=== PATIENT | female | born 1985 | race Caucasian/White ===

== ENCOUNTER 2022-06-03 07:38 | Outpatient (REF) | payer OTHER, SELFPAY ==
[2022-06-03 07:48] LABS: MANUAL DIFF FLAG NO
--- NOTE | 2022-06-03 07:55 | ECG_ITS ---
Test Reason : cp Blood Pressure : / mmHG Vent. Rate : 076 BPM Atrial Rate : 076 BPM P-R Int : 148 ms QRS Dur : 080 ms QT Int : 376 ms P-R-T Axes : 051 020 020 degrees QTc Int : 423 ms Normal sinus rhythm Normal ECG No previous ECGs available Referred By: Fiordaliza Soto Electronically Signed By:TAMMY YT
[2022-06-03 08:19] LABS: Basophils Absolute Auto 0.1 X10*3/uL (0.0-0.2); Basophils Percent Auto 1.1 % (0-2); Eosinophils Absolute Auto 0.2 X10*3/uL (0.0-0.4); Eosinophils Percent Auto 2.1 % (0-4); Hematocrit 39.3 % (37.0-47.0); Hemoglobin 13.2 g/dl (12.0-16.0); Imm Gran Abs Auto 0.03 X10*3/uL (0.00-0.03); Imm Gran Pct Auto 0.3 % (0.0-0.4); Lymphocytes Absolute Auto 2.8 X10*3/uL (1.2-4.9); Lymphocytes Percent Auto 31.1 % (20-40); Mean Corpuscular HGB Conc 33.6 g/dl (31.0-35.0); Mean Corpuscular Hemoglobin 30.2 pg (27.0-33.0); Mean Corpuscular Volume 89.9 fL (80.0-98.0); Mean Platelet Volume 11.3 fL (9.4-12.3); Monocytes Absolute Auto 0.7 X10*3/uL (0.1-1.2); Monocytes Percent Auto 7.7 % (2-11); Neutrophils Absolute Auto 5.1 x10*3/uL (2.0-8.3); Neutrophils Percent Auto 57.7 % (45-73); Platelet Count 273 X10*3/uL (160-400); Red Blood Count 4.37 X10*6/uL (4.20-5.50); Red Cell Distribution Width 12.9 % (11.0-16.0); White Blood Count 8.9 X10*3/uL (4.8-10.8)
[2022-06-03 08:48] LABS: Alanine Aminotransferase 24 U/L (0-31); Albumin Level 3.8 g/dL (3.5-5.0); Alkaline Phosphatase 53 U/L (39-117); Anion Gap 13 (12-20); Aspartate Amino Transferase 16 U/L (5-31); Bilirubin Total 0.3 mg/dL (0.0-1.0); Blood Urea Nitrogen 16 mg/dL (9-16); Calcium 8.5 mg/dL (8.4-10.2); Carbon Dioxide 23 mmol/L (22-29); Chloride 109 mmol/L (96-108); Cholesterol 180 mg/dL; Estimated Glomerular Filt Rate > 60; Glucose Fasting 109 mg/dL (60-99); HDL Cholesterol 42 mg/dL; LDL Cholesterol Calculated 126 mg/dl; Potassium 4.3 mmol/L (3.3-5.1); Sodium 141 mmol/L (135-145); Total Protein 6.2 g/dL (6.5-8.0); Triglycerides 62 mg/dL
[2022-06-03 09:09] LABS: TSH reflex Free T4 2.19 uIU/mL (0.32-4.0); Vitamin D 25-OH Total 25.6 ng/mL (>30)
[2022-06-03 09:45] LABS: Folate 8.7 ng/mL (> or = 4.0); Vitamin B12 434 pg/mL (200-900)
[2022-06-06 17:47] LABS: Thyroid Peroxidase Antibodies <1 IU/mL (<9)
== END 2022-06-03 07:39 | disposition home or self-care (01) ==
LOC: HO.LAB 07:38
PROVIDERS: PCP Nurse Practitioner Family; Visit Provider Nurse Practitioner Family
DX: R07.9 Chest pain, unspecified (principal); R00.2 Palpitations; R22.1 Localized swelling, mass and lump, neck; Z76.89 Persons encountering health services in other specified circumstances
CPT/HCPCS: 36415; 80053; 80061; 82306; 82607; 82746; 84443; 85025; 86376; 93005

== ENCOUNTER 2023-02-17 12:16 | Outpatient (REF) | payer OTHER, SELFPAY ==
[2023-02-17 12:28] LABS: MANUAL DIFF FLAG NO
[2023-02-17 13:16] LABS: Basophils Absolute Auto 0.1 X10*3/uL (0.0-0.2); Basophils Percent Auto 0.9 % (0-2); Eosinophils Absolute Auto 0.2 X10*3/uL (0.0-0.4); Eosinophils Percent Auto 1.8 % (0-4); Hematocrit 38.2 % (37.0-47.0); Hemoglobin 12.8 g/dl (12.0-16.0); Imm Gran Abs Auto 0.05 X10*3/uL (0.00-0.03); Imm Gran Pct Auto 0.5 % (0.0-0.4); Lymphocytes Absolute Auto 3.8 X10*3/uL (1.2-4.9); Lymphocytes Percent Auto 35.6 % (20-40); Mean Corpuscular HGB Conc 33.5 g/dl (31.0-35.0); Mean Corpuscular Hemoglobin 29.4 pg (27.0-33.0); Mean Corpuscular Volume 87.8 fL (80.0-98.0); Mean Platelet Volume 11.2 fL (9.4-12.3); Monocytes Absolute Auto 0.9 X10*3/uL (0.1-1.2); Monocytes Percent Auto 8.7 % (2-11); Neutrophils Absolute Auto 5.5 x10*3/uL (2.0-8.3); Neutrophils Percent Auto 52.5 % (45-73); Platelet Count 295 X10*3/uL (160-400); Red Blood Count 4.35 X10*6/uL (4.20-5.50); Red Cell Distribution Width 12.8 % (11.0-16.0); White Blood Count 10.5 X10*3/uL (4.8-10.8)
[2023-02-17 13:45] LABS: Estimated Average Glucose 103 mg/dL; Hemoglobin A1c % 5.2 %
[2023-02-17 14:10] LABS: Alanine Aminotransferase 18 U/L (0-31); Albumin Level 4.1 g/dL (3.5-5.0); Alkaline Phosphatase 53 U/L (39-117); Anion Gap 14 (12-20); Aspartate Amino Transferase 12 U/L (5-31); Bilirubin Total 0.4 mg/dL (0.0-1.0); Blood Urea Nitrogen 14 mg/dL (9-16); Calcium 8.4 mg/dL (8.4-10.2); Carbon Dioxide 22 mmol/L (22-29); Chloride 108 mmol/L (96-108); Estimated Glomerular Filt Rate > 60; Glucose Random 87 mg/dL (60-115); Potassium 4.3 mmol/L (3.3-5.1); Rheumatoid Factor < 13.0 IU/mL (<15.0); Sodium 140 mmol/L (135-145); Total Protein 6.3 g/dL (6.5-8.0)
[2023-02-17 14:18] LABS: TSH reflex Free T4 1.88 uIU/mL (0.32-4.0); Vitamin D 25-OH Total 29.6 ng/mL (>30)
[2023-02-20 21:33] LABS: Lyme Abs Screen <0.90 index
[2023-02-24 14:58] LABS: Anti Nuclear Antibody Screen POSITIVE (NEGATIVE); Anti Nuclear Antibody Titer 1:40 titer
== END 2023-02-17 12:17 | disposition home or self-care (01) ==
LOC: HO.LAB 12:16
PROVIDERS: PCP Nurse Practitioner Family; Visit Provider Nurse Practitioner Family
DX: R07.9 Chest pain, unspecified (principal); R00.2 Palpitations; M25.50 Pain in unspecified joint; R79.89 Other specified abnormal findings of blood chemistry; M79.89 Other specified soft tissue disorders; R73.01 Impaired fasting glucose; E55.9 Vitamin D deficiency, unspecified
CPT/HCPCS: 36415; 80053; 82306; 83036; 84443; 85025; 86038; 86039; 86431; 86617; 86618

== ENCOUNTER → 2023-03-13 15:43 | Outpatient (REF) | payer OTHER, SELFPAY ==
--- NOTE | 2023-03-13 15:46 | CA_ITS ---
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 The calculated ejection fraction is 65% by biplane method. - No obvious valvular pathology seen on this study. Findings Left Ventricle Normal left ventricular cavity size. There is normal left ventricular wall thickness. The left ventricular systolic function is normal. The calculated ejection fraction is 65% by biplane method. There is no evidence of regional wall motion abnormalities. Diastolic function is normal for age. LV peak GLS -22%. Right Ventricle Normal right ventricular cavity size and systolic function. Atria Both atria are normal in size. Aortic Valve There is a normal trileaflet aortic valve. There is no aortic valve stenosis. There is no aortic valve regurgitation. Mitral Valve The mitral valve appears normal. There is no mitral valve regurgitation. There is no mitral valve stenosis. Pulmonic Valve The pulmonic valve is likely normal. Tricuspid Valve Normal tricuspid valve structure. There is trace tricuspid valve regurgitation. There is no evidence of pulmonary hypertension. Great Vessels The aortic annulus, sinuses of valsalva, and asc aorta are normal in size. Venous The inferior vena cava is normal in size and collapses greater than 50% with inspiration. Pericardium/Pleural There is no evidence of pericardial effusion. Prior Study Comparison No significant change compared to prior study dated: 07/07/2004. Recommendations, Care & Conclusions No obvious valvular pathology seen on this study. Measurements 2D Linear Measurements IVSd: 0.87 0.6-0.9/0.6-1.0 cm LVIDd: 4.78 3.9-5.3/4.2-5.9 cm LVIDd Index: 2.30 2.4-3.2/2.2-3.1 cm/m2 LVIDs: 2.73 2.0-3.6 cm LVPWd: 0.93 0.7-1.1 cm LA Diam: 3.40 2.7-3.8/3.0-4.0 cm LAIDs Index: 1.63 1.5-2.3 cm/m2 LV Mass: 182.84 67-162/88-224 g LV Mass Index: 87.90 43-95/49-115 g/m2 LVOT Diam: 2.00 3.0+(-)1.3 cm 2D Systolic Function EF 4C: 59.00 >55% EF 2C: 69.00 >55% EF BiP: 64.90 >55% Mitral Valve MV Pk E: 0.99 MV PK A: 0.72 MV Decel Time: 217.00 E/A: 1.40 E'Lateral: 13.20 E'Medial: 10.90 E/E' Med: 9.10 E/E' Lat: 7.50 PHT: 64.00 MVA PHT: 3.44 Decel [place]: 4.55 Aortic Valve AoV Pk Ricardo: 1.74 AoV Mn Ricardo: 1.17 AoV VTI: 0.36 AoV Pk Grad: 12.00 Aov Mn Grad: 6.00 FERNANDA Cont.VTI: 2.03 LVOT LVOT Pk Ricardo: 1.15 LVOT Mn Ricardo: 0.79 LVOT VTI: 0.23 LVOT Pk Grad: 5.00 LVOT Mn Grad: 3.00 LVOT Diam: 2.00 LVOT Area: 3.14 Diastolic Function MV Pk E: 0.99 MV Pk A: 0.72 E/A: 1.40 E'Medial: 10.90 E/E' Med: 9.10 E' Laterial: 13.20 E/E' Lat: 7.50 Right Ventricle TAPSE (mm): 28.60 TVS' Ricardo: 12.90 Tricuspid Valve TR Pk Ricardo: 2.25 TR Pk Grad: 20.00 RA Press: 3.00 RVSP: 23.00 Great Vessels Aorta Sinus of Valsalva: 2.87 2.0-3.[address] [place]: 2.43 1.7-3.4 cm Ao Asc: 2.60 2.1-3.4 cm Updated in Other Vendor System with Status of Final Jose De Jesus Mcgrath MD electronically signed on 03/14/2023 11:58:13 AM with status of Final
== END ==
LOC: HO.CARD 15:43
PROVIDERS: PCP Nurse Practitioner Family; Visit Provider Nurse Practitioner Family
DX: R60.0 Localized edema (principal)
CPT/HCPCS: 93306; 93356

== ENCOUNTER 2023-06-13 12:43 | Outpatient (AMB) | payer OTHER, SELFPAY ==
--- NOTE | 2023-06-13 12:50 | A.OFFVIS_ITS ---
Intake Vital Signs 06/13/23 12:51 Height 5 ft 4 in Weight 222 lb 10.67 oz BMI 38.2 BP 136/78 Blood Pressure Location Rt brachial Position Sitting Pulse 100 Pulse Source Pulse Oximeter Temp 98.1 F Temp Source Skin Pulse Oximetry (%) 99 Intake Visit Reasons: + ARTIS Intake Note: New pt presents today for +ARTIS consult. States she was tested because she experienced severe feet and face swelling, weight gain, intermittently for 2 years. Engineering Specialist Required: No Accompanied by: Self / Same As Patient Allergies amoxicillin [AMOXICILLIN] Allergy (Unknown, Verified 06/13/23 12:54) RASH Amoxicillin Allergy (Unknown, Uncoded 06/13/23 12:54) hives Medication List - Last Reconciled 06/13/23 by Brennan Vasquez MD cholecalciferol (vitamin D3) 25 mcg PO DAILY furosemide (Lasix) 20 mg PO DAILY PRN naproxen sodium (Aleve) 220 mg PO Q12H PRN omeprazole 20 mg PO DAILY PRN simethicone (Gas Relief 80 (simethicone)) 80 mg PO TID-QID PRN HPI HPI Comments History of Present Illness0 Details This is a 37-year-old female who presents for evaluation of a positive ARTIS. Over the last 2 years patient has been getting recurrent swelling of her legs, feet, abdomen. Swelling occurs once or twice a month and can last 1-2 weeks. Swelling is usually worse at the end of the day. She denies any significant pain. Denies any skin rashes. She states that her fingers, toes, lips change color to white and blue for many years. Denies ever having any digital tip ulcers. She gained about 50 lb over the last 1-2 years despite exercising and dieting. [facility] Medical History COVID-19 Surgical History H/O section History of cholecystectomy Family History Mother No problems noted. Father No problems noted. 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 Cognitive needs: No Hearing needs: No Vision needs: Yes (contacts ) Female Reproductive History Menstrual Total pregnancies: 4 Number of Living Children: 2 Ab spontaneous: 2 Review of Systems Const Reports fatigue, Reports headache(s), Reports weakness and Reports weight gain Eyes Reports blurry vision and Reports diplopia ENT Reports dysphagia, Reports headache(s), Reports hoarseness and Reports tinnitus Card Reports no additional complaints and Reports dyspnea Resp Reports dyspnea GI Reports dysphagia, Reports heartburn and Reports nausea Musc Reports arthralgias, Reports joint swelling and Reports stiffness Skin/Breast Reports dry skin and Reports unusual bruising Neuro Reports headache(s), Reports memory loss and Reports weakness Psych Reports anxiety, Reports depression and Reports memory loss Endo Reports fatigue and Reports polydipsia Physical Exam Vital Signs: Last Vital Signs Temp 98.1 F 06/13/23 12:51 Pulse 100 06/13/23 12:51 BP 136/78 06/13/23 12:51 Pulse Ox 99 06/13/23 12:51 BMI result Body Mass Index 38.2 Const General: cooperative, healthy appearing and comfortable Nutritional Appearance: obese morbidly obese Orientation/consciousness: patient oriented x3 Limitations: no limitations HEENT Head: Yes normocephalic and Yes atraumatic Mouth: moist mucous membranes Resp Effort & Inspection: normal respiratory effort and able to speak in complete sentences Auscultation: clear to auscultation bilaterally Cardio Rate: regular rate Rhythm: regular rhythm GI Inspection: No distended Palpation (GI): Soft to palpation and nontender Skin Other: An area of mildly dry skin on the dorsum of her foot Neuro General: patient oriented x3 Extrem Other: No active synovitis Normal nailfold capillaroscopy Assessment & Plan Assessment & Plan (1) ARTIS positive: Code(s): R76.8 - Other specified abnormal immunological findings in serum Plan: This is a 37-year-old female who presents for evaluation of positive ARTIS 1-40 dfs. I do not see any signs suggestive of an autoimmune rheumatic disease. (2) Skin swelling: Code(s): R22.9 - Localized swelling, mass and lump, unspecified Plan: Over the last 2 years patient has been having recurrent swelling of her legs, feet, abdomen. Upon evaluation there is no skin thickening suggestive of scleroderma. I do not see any classic signs of scleredema or scleromyxedema. I suggest Dermatology evaluation Plan I spent 46 minutes reviewing patient's chart, evaluating patient, ordering diagnostic workup, counseling patient and documenting in the chart Coding Level of Care Code New Pt Level 4 (85369) Diagnoses ARTIS positive R76.8 Skin swelling R22.9
[2023-06-13 12:51] VITALS: BP 136/78; PULSE 100; TEMP 36.7; O2SAT 99; BMI 38.2
== END 2023-06-13 13:42 | disposition home or self-care (01) ==
PROVIDERS: PCP Nurse Practitioner Family; Visit Provider Student in an Organized Health Care Education/Training Program
DX: R76.8 Other specified abnormal immunological findings in serum (principal); R22.9 Localized swelling, mass and lump, unspecified
CPT/HCPCS: 99204

== ENCOUNTER → 2023-06-13 12:43 | Outpatient (BNVA) | payer OTHER, SELFPAY | PROVIDERS: Visit Provider Student in an Organized Health Care Education/Training Program ==

== ENCOUNTER 2023-11-13 07:45 | Outpatient (AMB) | payer OTHER, SELFPAY ==
[2023-11-13 07:49] VITALS: BP 128/84; PULSE 74; O2SAT 98; BMI 39.0
--- NOTE | 2023-11-13 07:49 | MHC.PC.OV ---
Vital Signs 11/13/23 07:49 Height 5 ft 4 in Weight 227 lb BMI 39.0 BP 128/84 Blood Pressure Location Lt brachial Position Sitting Pulse 74 Pulse Source Pulse Oximeter Pulse Oximetry (%) 98 Oxygen Delivery Method Room Air Intake Visit Reasons: transfer from [facility] questions Allergies amoxicillin [AMOXICILLIN] Allergy (Unknown, Verified 11/13/23 08:20) RASH Amoxicillin Allergy (Unknown, Uncoded 11/13/23 08:20) hives Medication List - Last Reconciled 11/13/23 by Yonny Crowe MD cholecalciferol (vitamin D3) 25 mcg PO DAILY naproxen sodium (Aleve) 220 mg PO Q12H PRN omeprazole 20 mg PO DAILY PRN simethicone (Gas Relief 80 (simethicone)) 80 mg PO TID-QID PRN Tobacco use date assessed: 11/13/23 Dental Screening Dental Screen Date: 11/13/23 Did you have a dental visit in the last 12 months?: Yes Did you have a dental problem in the last 6 months where you did not have access to dental care?: No Was dental information given to patient?: Patient has dentist HPI transfer from [facility] questions HPI Details 37-year-old female presents to the office to discuss her medical issues. I am assuming her care as her previous primary care provider has left the practice. Patient mainly wishes to discuss her obesity issues. She weighs herself now at 227 lb. She would like to try a medication to lose weight. She works from home and is on the computer all day as part of the work. She is young children and her diet is not the best. Not exercising regularly. Able to function and do all activities of daily living. [facility] Medical History (Updated 11/13/23 @ 08:22 by Yonny Crowe MD) COVID-19 Surgical History H/O section History of cholecystectomy Family History Mother No problems noted. Father No problems noted. 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 1. Little interest or pleasure in doing things: not at all 2. Feeling down, depressed, or hopeless: several days 3. Trouble falling or staying asleep, or sleeping too much: not at all 4. Feeling tired or having little energy: not at all 5. Poor appetite or overeating: not at all 6. Feeling bad about yourself - or that you are a failure or have let yourself or your family down: not at all 7. Trouble concentrating on things, such as reading the newspaper or watching television: not at all 8. Moving or speaking so slowly that other people could have noticed. Or the opposite - being so fidgety or restless that you have been moving around a lot more than usual: not at all 9. Thoughts that you would be better off or of hurting yourself in some way: not at all Total score: 1 Depression Screening Interpretation: Negative Depression Screening Done: Yes 56710 - PHQ-9 Billing: Yes Source: Developed by Drs. Eze Markham, Veronica Painter, Rony Ibanez and colleagues, with an educational zara from [employer]. Thrive Questionnaire Date Thrive assessed: 11/13/23 I am a: Patient What is your living situation today?: I have a steady place to live Within the past 12 months, did the food you bought not last and you didn't have the money to get more?: Never true Within the past 12 months, did you worry whether your food would run out before you got money to buy more?: Never true Do you have trouble paying for medicines?: No Do you have trouble getting transportation to medical appointments?: No Do you have trouble paying your heating and electricity bill?: No Do you have trouble taking care of your child, family member or friend?: No Do you have trouble with day-to-day activities such as bathing, preparing meals, shopping, managing finances, etc.?: No Are you currently unemployed and looking for a job?: No Are you interested in more education?: No Currently or been in a relationship where the following occur: no concerns reported THRIVE Score: 0 AUDIT C Alcohol Use Questionnaire (AUDIT-C) 1. How often do you have a drink containing alcohol?: Monthly or less 2. How many drinks containing alcohol do you have on a typical day when you are drinking?: 1 or 2 Total Score: 1 Score Reviewed/Action Taken: No LUIS ANTONIO-7 AMB Questionnaire LUIS ANTONIO-7 Date LUIS ANTONIO - 7 assessed: 11/13/23 Feeling nervous, anxious, or on edge: 2 = More than half the days Not being able to stop or control worryin = Not at all Worrying too much about different things: 0 = Not at all Trouble relaxin = Several days Being so restless that it is hard to sit still: 0 = Not at all Becoming easily annoyed or irritable: 1 = Several days Feeling afraid as if something awful might happen: 0 = Not at all Total LUIS ANTONIO-7 score (0-4 normal; 5-9 mild; 10-14 moderate; 15-21 severe): 4 Source: Developed by Drs. Eze Markham, Veronica Painter, Rony Ibanez and colleagues, with an educational zara from [employer]. LUIS ANTONIO-7 Assessment Billing LUIS ANTONIO-7 Assessment Tool: LUIS ANTONIO-7 Assessment 14612 Physical exam (Primary Care) Vital Signs: Last Vital Signs Pulse 74 11/13/23 07:49 BP 128/84 11/13/23 07:49 Pulse Ox 98 11/13/23 07:49 Oxygen Delivery Method Room Air 11/13/23 07:49 BMI result Body Mass Index 39.0 BMI Assessment/Plan discussion: High (1 lb per week weight loss suggested.) BMI High, discussed plan: lifestyle, weight reduction and dietary Tobacco/Smoking Status: Tobacco use Status Tobacco use date assessed 11/13/23 11/13/23 07:56 Patient Tobacco Use Status Never used Tobacco 11/13/23 07:56 e-Cigarette/Vaping Use Never Used 11/13/23 07:56 PHQ-9: PHQ-9 Score PHQ-9: Total score 1 11/13/23 07:56 Depression Screening Interpretation: Negative Thrive Assessment: Date of Thrive Assessment Date Thrive assessed 11/13/23 11/13/23 07:56 Currently or been in a relationship where the following occur: no concerns reported Const General: cooperative and healthy appearing Nutritional Appearance: well nourished Orientation/consciousness: patient oriented x3 Limitations: no limitations HENMT Head: Yes normal to inspection Eyes General: appearance normal, both eyes and all related structures Neck Neck: Yes normal visual inspection Chest Chest palpation & inspection: normal palpation of entire chest wall Resp Effort & Inspection: normal respiratory effort Neuro General: patient oriented x3 Assessment and Plan Assessment & Plan (1) Obesity (BMI 30-39.9): Code(s): E66.9 - Obesity, unspecified Plan Trial of Ozempic. 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 20 minutes spent on counseling on weight loss measures including diet and exercise. Blood work has been ordered. Orders: Orders Basic Metabolic Panel Today E66.9 - Obesity, unspecified Liver Panel Today E66.9 - Obesity, unspecified Thyroid Stimulating Hormone Today E66.9 - Obesity, unspecified UA and rflx microscopic Today E66.9 - Obesity, unspecified Complete Blood Count no Diff Today E66.9 - Obesity, unspecified Lipid Panel Today E66.9 - Obesity, unspecified Coding Level of Care Code Est Pt Level 4 (24306) Diagnoses Obesity (BMI 30-39.9) E66.9 Additional Codes LUIS ANTONIO-7 Assessment Billing - LUIS ANTONIO-7 Assessment Tool: LUIS ANTONIO-7 Assessment [id number] ([id number])
== END 2023-11-13 08:19 | disposition home or self-care (01) ==
PROVIDERS: PCP Nurse Practitioner Family; Visit Provider Internal Medicine
DX: E66.9 Obesity, unspecified (principal); Z68.39 Body mass index [BMI] 39.0-39.9, adult
CPT/HCPCS: 99214

== ENCOUNTER 2023-11-13 08:24 | Outpatient (REF) | payer OTHER, SELFPAY ==
[2023-11-13 09:18] LABS: Hematocrit 38.8 % (37.0-47.0); Hemoglobin 13.2 g/dl (12.0-16.0); Mean Corpuscular Volume 88.2 fL (80.0-98.0); Platelet Count 271 X10*3/uL (160-400); Red Cell Distribution Width 13.2 % (11.0-16.0); White Blood Count 10.9 X10*3/uL (4.8-10.8)
[2023-11-13 09:24] LABS: Appearance Urine Cloudy; Color Urine Yellow; Glucose Urine UA Negative (Negative); Leukocyte Esterase Urine Negative (Negative); Nitrite Urine Negative (Negative); PH 5.5 (5.0-9.0); Specific Gravity - Urine >= 1.030 (1.005-1.025); Urine Blood Negative (Negative); Urine Ketones Negative (Negative); Urine Protein Negative (Neg-Trace)
[2023-11-13 09:51] LABS: Alanine Aminotransferase 20 U/L (0-31); Albumin Level 3.9 g/dL (3.5-5.0); Alkaline Phosphatase 49 U/L (39-117); Anion Gap 13 (12-20); Aspartate Amino Transferase 12 U/L (5-31); Bilirubin Direct < 0.2 mg/dL (0.0-0.5); Bilirubin Total 0.2 mg/dL (0.0-1.0); Blood Urea Nitrogen 12 mg/dL (9-16); Calcium 8.6 mg/dL (8.4-10.2); Carbon Dioxide 24 mmol/L (22-29); Chloride 106 mmol/L (96-108); Cholesterol 163 mg/dL (<200); Estimated Glomerular Filt Rate > 60; Glucose Random 113 mg/dL (60-115); HDL Cholesterol 42 mg/dL (>40); LDL Cholesterol Calculated 107 mg/dL (<100); Potassium 4.3 mmol/L (3.3-5.1); Sodium 139 mmol/L (135-145); Total Protein 6.4 g/dL (6.5-8.0); Triglycerides 73 mg/dL (<150)
[2023-11-13 10:07] LABS: Thyroid Stimulating Hormone 1.57 uIU/mL (0.32-4.0)
== END 2023-11-13 08:25 | disposition home or self-care (01) ==
LOC: HO.LAB 08:24
PROVIDERS: PCP Internal Medicine; Visit Provider Internal Medicine
DX: E66.9 Obesity, unspecified (principal)
CPT/HCPCS: 36415; 80048; 80061; 80076; 81003; 84443; 85027

== ENCOUNTER 2024-07-08 07:49 | Outpatient (AMB) | payer OTHER, SELFPAY ==
[2024-07-08 07:53] VITALS: BP 118/80; BMI 31.2
--- NOTE | 2024-07-08 07:53 | A.OFFPC_ITS ---
Vital Signs 07/08/24 07:53 Height 5 ft 4 in Weight 182 lb BMI 31.2 BP 118/80 Blood Pressure Location Lt brachial Position Sitting Intake Visit Reasons: Obesity, HTN raz 06/27 Cotton Ginner Required: No Accompanied by: Self / Same As Patient Allergies amoxicillin [AMOXICILLIN] Allergy (Unknown, Verified 07/08/24 08:26) RASH Amoxicillin Allergy (Unknown, Uncoded 07/08/24 08:26) hives Medication List - Last Reconciled 07/08/24 by Yonny Crowe MD cholecalciferol (vitamin D3) 25 mcg PO DAILY semaglutide (Ozempic) 2 mg (0.75 mL) subcut QWEEK simethicone (Gas Relief 80 (simethicone)) 80 mg PO TID-QID PRN Tobacco use date assessed: 11/13/23 Dental Screening Dental Screen Date: 11/13/23 HPI Obesity, HTN raz 06/27 HPI Details 38-year-old female presents to the offic e to discuss her chronic medical condition. Patient has been taking Ozempic for the past 6 months. Her baseline weight has reduced from 227-182 lb. Patient feels terrific. She recently increased her dosage to 2 mg per week. Her appetite has decreased. Swelling in her lower feet has resolved. Not taking any other medications. Patient is reporting symptoms of anxiety. Mostly just before her periods. No episodes of crying or losing her temper. Increased forgetfulness. Feels overwhelmed at times. Sleep patterns are normal. [facility] Medical History (Updated 07/08/24 @ 08:29 by Yonny Crowe MD) Dysthymia COVID-19 Surgical History H/O section History of cholecystectomy Family History Mother No problems noted. Father No problems noted. 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 Eze Markham, Veronica Painter, Rony Ibanez and colleagues, with an educational zara from [employer]. Physical exam (Primary Care) Vital Signs: Last Vital Signs BP 118/80 07/08/24 07:53 BMI result Body Mass Index 31.2 Tobacco/Smoking Status: Tobacco use Status Tobacco use date assessed 11/13/23 07/08/24 07:58 Patient Tobacco Use Status Never used Tobacco 07/08/24 07:58 e-Cigarette/Vaping Use Never Used 07/08/24 07:58 Thrive Assessment: Date of Thrive Assessment Date Thrive assessed 11/13/23 07/08/24 07:58 Const General: cooperative and healthy appearing Nutritional Appearance: well nourished Orientation/consciousness: patient oriented x3 Limitations: no limitations HENMT Head: Yes normal to inspection Eyes General: appearance normal, both eyes and all related structures Neck Neck: Yes normal visual inspection Chest Chest palpation & inspection: normal palpation of entire chest wall Resp Effort & Inspection: normal respiratory effort Neuro General: patient oriented x3 Assessment and Plan Assessment & Plan (1) Hypertension: Code(s): I10 - Essential (primary) hypertension Plan: Blood pressure is in range on no medications. Continue to monitor. (2) Obesity (BMI 30-39.9): Code(s): E66.9 - Obesity, unspecified Plan: Continue Ozempic at current dosage. Counseling on the importance of diet and exercise done. (3) Dysthymia: Code(s): F34.1 - Dysthymic disorder Plan: Patient may have symptoms of mild depression at the moment. Counseled her on the use of relaxation techniques and improving organization skills. Patient is reluctant to take medications and I agree with her decision. Orders: Orders Thyroid Stimulating Hormone Today I10 - Essential (primary) hypertension UA and rflx microscopic Today I10 - Essential (primary) hypertension Basic Metabolic Panel Today I10 - Essential (primary) hypertension Complete Blood Count no Diff Today I10 - Essential (primary) hypertension Lipid Panel Today I10 - Essential (primary) hypertension Liver Panel Today I10 - Essential (primary) hypertension MM screening mammo BI Today Z12.31 - Encounter for screening mammogram for malignant neoplasm of breast Coding Level of Care Code Est Pt Level 4 (27486) Complex EM visit Add On G2211 Diagnoses Hypertension I10 Obesity (BMI 30-39.9) E66.9 Dysthymia F34.1
== END 2024-07-08 08:27 | disposition home or self-care (01) ==
PROVIDERS: PCP Internal Medicine; Visit Provider Internal Medicine
DX: I10 Essential (primary) hypertension (principal); E66.9 Obesity, unspecified; F34.1 Dysthymic disorder; Z68.31 Body mass index [BMI] 31.0-31.9, adult

== ENCOUNTER → 2024-07-08 07:49 | Outpatient (BNVA) | payer OTHER, SELFPAY | PROVIDERS: PCP Internal Medicine; Visit Provider Internal Medicine ==

== ENCOUNTER 2025-08-16 10:31 | Emergency (ER) | payer OTHER, SELFPAY ==
--- NOTE | ~2025-08-16 | CT_ITS ---
CLINICAL HISTORY: right hip right low back pain --- Additional Notes or Special Instructions: ?hernia v joint effusion Exam: Unenhanced CT abdomen and pelvis with multiplanar reformats. Comparison: None. Findings: CT abdomen: Lung bases are clear. Liver is free of gross focal lesions and ductal dilatation. Gallbladder is absent. Spleen appears unremarkable. Pancreas and adrenal glands appear unremarkable. Kidneys appear unremarkable. No urolithiasis or hydroureteronephrosis. No free intraperitoneal fluid or retroperitoneal masses or adenopathy. Abdominal aorta is normal caliber. Bowel loops reveal no abnormal wall thickening or distention. The appendix is unremarkable. No CT evidence of diverticulitis. CT pelvis: Uterus and adnexal structures appear unremarkable. Urinary bladder is nondistended. No pelvic masses or adenopathy. No abdominal wall hernias appreciated. Osseous structures reveal no destructive osseous lesions. There appears to be a likely large disc herniation at L4-5 resulting in likely severe central canal stenoses (3; 3D 6 -392, also seen on 7; 65). No significant hip or other significant lumbar arthritic disease. Impression: 1. Likely large disc herniation at L4-5 with likely significant central canal stenoses. If imaging confirmation is clinically warranted, consider MRI. 2. No other acute abnormalities or other CT explanation for reported history of right-sided back and hip pain. This document has been electronically signed by: Jaison Aranda MD on 08/16/2025 17:29:39
--- NOTE | ~2025-08-16 | XR_ITS ---
CLINICAL HISTORY: R hip pain swelling 2 views right hip Comparison: None Findings: No fractures or dislocations. No significant hip arthritic change. No radiopaque foreign body. Impression: 1. Unremarkable right hip This document has been electronically signed by: Jaison Aranda MD on 08/16/2025 12:52:43
[2025-08-16 10:49] VITALS: BP 139/84; PULSE 83; RESP 16; TEMP 36.7; O2SAT 98; BMI 32.4
--- NOTE | 2025-08-16 11:25 | ED_ITS ---
HPI - General Adult General Chief complaint: General Medical Stated complaint: lump on back with pain diff walking Time Seen by Provider: 08/16/25 11:21 Source: patient Mode of arrival: ambulatory Limitations: no limitations History of Present Illness ED Provider: SAMANTA HAIDER PA-C HPI narrative: 39-year-old female presents to the ED today for evaluation of swelling to right back pain x1 year, worsening. Pain radiates down the back of her right leg. Having difficulty ambulating due to pain. Endorses mild paresthesias down the right leg, no weakness. She has trialed heat/ice, Motrin and other [id number] medications without much relief. Her last dose of Motrin was this morning around 0830. Denies history of IV drug use, spinal surgery. Denies blunt injury or trauma to the back. Denies fever, chills, bowel or bladder incontinence or retention, saddle anesthesia, dysuria, hematuria. No recent heavy lifting. No recent exercise/repetitive movements. She also reports a lump to the right hip area for same amount of time. Reports significant amount of weight loss on GLP 1 over the past year, she is unsure if this lump is just excess skin/SQ tissue. Reports seeing her OB 1 mo ago - had pelvic US which ruled out any ovarian cysts. Related Data Previous Rx's ?Medication ?Instructions ?Recorded lidocaine 5 % topical patch See Rx Instructions topica l 08/16/25 .COMPLEX #15 ea oxycodone 5 mg tablet 5 mg PO Q12H PRN pain (scale score 08/20/25 7-10) 10 days #20 tabs prednisone 20 mg tablet 20 mg PO DAILY 7 days #7 tab s 08/20/25 Allergies Allergy/AdvReac Type Severity Reaction Status Date / Time amoxicillin (AMOXICILLIN) Allergy Unknown RASH Verified 08/20/25 10:13 Amoxicillin Allergy Unknown hives Uncoded 08/20/25 10:13 Review of Systems 2 Review of Systems: Yes all other systems are reviewed and are negative PMFSH Past Medical History Attestation statement: The following information was validated with the patient. Source: old records reviewed and nursing notes reviewed Medical History Dysthymia COVID-19 Surgical History H/O section History of cholecystectomy Family History Family History Mother No problems noted. Father No problems noted. 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 Current occupational exposures/hazards: No Cognitive needs: No Hearing needs: No Vision needs: Yes (contacts ) Physical Exam ED Vital Signs: Vital Signs - 24 hr 08/16/25 10:49 08/16/25 12:00 08/16/25 14:00 Temperature 98.0 F Pulse Rate 83 72 70 Respiratory Rate 16 20 20 Blood Pressure 139/84 132/86 130/80 Pulse Oximetry 98 96 97 Oxygen Delivery Method Room Air Room Air Room Air 08/16/25 16:56 Temperature 98.4 F Pulse Rate 75 Respiratory Rate 16 Blood Pressure 120/82 Pulse Oximetry 100 Oxygen Delivery Method Room Air BMI result Body Mass Index 32.4 General: Well appearing, in no acute distress. Skin: Warm, dry, intact. No rashes or lesions. Head: Normocephalic, atraumatic. EENT: Hearing is intact b/l. Conjunctiva clear. Sclera is anicteric. PERRLA. EOM intact. Moist mucous membranes.? Cardiac: Chest wall symmetric. RRR Lungs: Normal respiratory effort without accessory muscle use. CTA bilaterally. Abdomen: Soft, non-tender, non-distended. No rebound tenderness or guarding. Positive BS x4. no cvat. Back: No midline spinous tenderness or step off. there is right lumbar paraspinal mm tenderness. positive straight leg raise. Ext: Upper and lower extremities atraumatic, without tenderness, deformity, swelling or erythema. Full ROM throughout Neuro: AOx3. Normal speech. strength 5/5 intact throughout. No saddle anesthesia. Sensation intact to light touch. 2+patellar DTRs. NV intact distally. Ambulating with slow but steady gait Course Course Course Narrative: X-ray right hip/pelvis unremarkable. There is no joint effusion, no fracture. CT abdomen/pelvis without obstructing ureteral stone. It does show disc herniation to L4/L5 with significant central canal stenosis, recommending further confirmation with MRI. > patient medicated with various pain meds in the ED with improvement in pain. I did discuss all workup results with patient. She needs to follow up with her PCP and neuro spine for further eval and outpatient MRI. I have provided her with referrals to both. Advised to contact their office tomorrow. In the meantime, I will be sending her home with lidocaine patches, oxycodone and prednisone for pain control. Medications Administered Discontinued Medications Generic Name Dose Route Start Last Admin Trade Name Rafaelq PRN Reason Stop Dose Admin Ketorolac Tromethamine 15 mg 08/16/25 14:48 08/16/25 14:54 Ketorolac Tromethamine 15 Mg/Ml Vial IVPUSH 08/16/25 14:49 15 mg ONCE ONE Administration Lidocaine 1 patch 08/16/25 18:12 08/16/25 18:35 Lidocaine 4 % Patch Adh..Patch TRANSDERMA 08/16/25 18:13 1 patch ONCE ONE Administration Protocol Morphine Sulfate 4 mg 08/16/25 13:26 08/16/25 13:44 Morphine Sulfate 4 Mg/Ml Cartridge IVPUSH 08/16/25 13:27 4 mg ONCE ONE Administration Protocol Ondansetron HCl 4 mg 08/16/25 13:26 08/16/25 13:44 Ondansetron Hcl 4 Mg/2 Ml Vial IVPUSH 08/16/25 13:27 4 mg ONCE ONE Administration Oxycodone HCl 15 mg 08/16/25 18:12 08/16/25 18:34 Oxycodone Hcl Immed Release 15 Mg Tablet PO 08/16/25 18:13 15 mg ONCE ONE Administration Prednisone 60 mg 08/16/25 18:12 08/16/25 18:34 Prednisone 20 Mg Tablet PO 08/16/25 18:13 60 mg ONCE ONE Administration Medical Decision Making Medical Decision Making MDM Narrative: 39-year-old female presents to the ED today for evaluation of swelling to right back pain x1 year, worsening. Vital signs stable, afebrile. Generally well- appearing however appears uncomfortable with any sort of movement. on exam, No midline spinous tenderness or step off. there is right lumbar paraspinal mm tenderness. positive straight leg raise. Differential diagnosis includes msk sprain/strain, disc herniation, compression fracture, arthritis, sciatica, lumbar radiculopathy. Lower suspicion for UTI, renal colic, nephrolithiasis, hydronephrosis. unlikely cauda equina, Guillain- Odd, epidural abscess, cord compression. Plan for labs, imaging, urine, pain control and re-evaluation. Differential Diagnosis Differential Diagnoses: The differential diagnosis associated with the presentation includes As above Admission/Observation Not indicated Lab Data MDM Lab Attestation statement: I reviewed the patient's lab results. as above. 08/16/25 11:59 08/16/25 11:59 Labs: Lab Results 08/16/25 08/16/25 Range/Units 11:59 15:19 WBC 8.1 (4.8-10.8) X10*3/uL RBC 4.32 (4.20-5.50) X10*6/uL Hgb 13.6 (12.0-16.0) g/dl Hct 39.4 (37.0-47.0) % MCV 91.2 (80.0-98.0) fL MCH 31.5 (27.0-33.0) pg MCHC 34.5 (31.0-35.0) g/dl RDW 12.6 (11.0-16.0) % Plt Count 243 (160-400) X10*3/uL MPV 10.6 (9.4-12.3) fL Immature Gran % (Auto) 0.2 (0.0-0.4) % Neut % (Auto) 51.3 (45-73) % Lymph % (Auto) 38.0 (20-40) % Louisa % (Auto) 9.1 (2-11) % Eos % (Auto) 0.7 (0-4) % Baso % (Auto) 0.7 (0-2) % Lymph # (Auto) 3.1 (1.2-4.9) X10*3/uL Louisa # (Auto) 0.7 (0.1-1.2) X10*3/uL Eos # (Auto) 0.1 (0.0-0.4) X10*3/uL Baso # (Auto) 0.1 (0.0-0.2) X10*3/uL Abs Immat Gran (auto) 0.02 (0.00-0.03) X10*3/uL Absolute Neuts (auto) 4.1 (2.0-8.3) x10*3/uL Absolute Nucleated RBC 0.000 (0.0-0.012) X10*3/uL Nucleated RBC % (auto) 0.0 (0.0-0.2) /100WBC ESR 2 (0-20) MM/HR Sodium 142 (135-145) mmol/L Potassium 3.9 (3.3-5.1) mmol/L Chloride 112 H (96-108) mmol/L Carbon Dioxide 22 (22-29) mmol/L Anion Gap 12 (12-20) BUN 15 (9-16) mg/dL Creatinine 0.76 (0.5-1.4) mg/dL Estim Creat Clear Calc 99.5 Estimated GFR > 60 Random Glucose 94 (60-115) mg/dL Calcium 8.5 (8.4-10.2) mg/dL Total Bilirubin 0.4 (0.0-1.0) mg/dL AST 27 (5-31) U/L ALT 63 H (0-31) U/L Alkaline Phosphatase 31 L (39-117) U/L C-Reactive Protein < 0.10 (< or = 0.50) mg/dL Total Protein 6.2 L (6.5-8.0) g/dL Albumin 4.1 (3.5-5.0) g/dL Beta HCG, Quant < 2 mIU/mL Urine Color Yellow Urine Appearance Clear Urine pH 6.0 (5.0-9.0) Ur Specific Douglas >= 1.030 H (1.005-1.025) Urine Protein Negative (Neg-Trace) mg/dL Urine Glucose (UA) Negative (Negative) mg/dL Urine Ketones Trace (Negative) mg/dL Urine Blood Negative (Negative) Urine Nitrite Negative (Negative) Ur Leukocyte Esterase Negative (Negative) Urine Test NEGATIVE (NEGATIVE) Independent Interpretation I performed an independent interpretation of an: Plain X-Ray and CT Scan Interpretation: X-ray right hip/pelvis without acute fracture, no effusion CT abdomen/pelvis without obstructing ureteral stone Radiology Impression Discussion of test interpretation with radiology: I have reviewed the radiologist's reading. Radiologist Impression: Procedure(s): XR hip RT w PEL1V Accession Number(s): [id number] cc: Samanta Haider; Yonny Crowe MD~ Reason for Exam: R hip pain/swelling CLINICAL HISTORY: R hip pain swelling 2 views right hip Comparison: None Findings: No fractures or dislocations. No significant hip arthritic change. No radiopaque foreign body. Impression: 1. Unremarkable right hip This document has been electronically signed by: Jaison Aranda MD on 08/16/2025 12:52:43 Procedure(s): CT abdomen pelvis wo IV con Accession Number(s): [id number] cc: Samanta Haider; Yonny Crowe MD~ Report Number: [id number]: Total DLP = 538.00 mGy-cm Reason for Exam: right hip/ right low back pain CLINICAL HISTORY: right hip right low back pain --- Additional Notes or Special Instructions: ?hernia v joint effusion Exam: Unenhanced CT abdomen and pelvis with multiplanar reformats. Comparison: None. Findings: CT abdomen: Lung bases are clear. Liver is free of gross focal lesions and ductal dilatation. Gallbladder is absent. Spleen appears unremarkable. Pancreas and adrenal glands appear unremarkable. Kidneys appear unremarkable. No urolithiasis or hydroureteronephrosis. No free intraperitoneal fluid or retroperitoneal masses or adenopathy. Abdominal aorta is normal caliber. Bowel loops reveal no abnormal wall thickening or distention. The appendix is unremarkable. No CT evidence of diverticulitis. CT pelvis: Uterus and adnexal structures appear unremarkable. Urinary bladder is nondistended. No pelvic masses or adenopathy. No abdominal wall hernias appreciated. Osseous structures reveal no destructive osseous lesions. There appears to be a likely large disc herniation at L4-5 resulting in likely severe central canal stenoses (3; 3D 6 -392, also seen on 65). No significant hip or other significant lumbar arthritic disease. Impression: 1. Likely large disc herniation at L4-5 with likely significant central canal stenoses. If imaging confirmation is clinically warranted, consider MRI. 2. No other acute abnormalities or other CT explanation for reported history of right-sided back and hip pain. This document has been electronically signed by: Jaison Aranda MD on 08/16/2025 17:29:39 Independent Historian Clinical information obtained from an independent historian. History obtained from or confirmed by: Parent (mom) External Record Review External record reviewed: Inpatient record Prescription Management I considered prescription management with: Pain Medication (Oxycodone) and Other (prednisone) Social Determinants Patient?s care significantly limited by Social Determinants of Health including: Other Social Determinant of Health Critical Care Time Critical Care Time Critical Care Time: No Discharge Plan Discharge Clinical Impression: Bulging of intervertebral disc between L4 and L5, Right lumbar radiculopathy Patient Disposition: Home, Self-Care Instructions: Lumbar Radiculopathy (ED), Back Pain (ED) Additional Instructions: You were evaluated in the ED today for right hip/right lower back pain. Your blood work is reassuring. Your urine does not demonstrate infection. The x-ray of your right hip is normal. The CT scan of your abdomen/pelvis shows a disc herniation to L4/L5 causing central spinal canal stenosis. Your exam is otherwise reassuring and you do not have any red flag back pain symptoms I recommend Tylenol and Motrin at home as needed for pain/discomfort. I am sending oxycodone, a controlled pain medication, to your pharmacy for you to take for breakthrough pain control. Please use this with caution as opioid pain medications have addictive properties. Opioid pain medications can often cause constipation. I recommend taking this with an over the counter laxative and/or stool softener to help move your bowels. I am also sending lidocaine patches to your pharmacy. Apply this to your back to help with pain control. Prednisone is a steroid that I am sending to your pharmacy for you to take over the next 5 days for inflammation. Please follow up with your primary care provider. Call their office Monday morning to schedule an outpatient MRI. Return with any new or worsening symptoms. Return to the Emergency Department if you experience worsening back pain, difficulty walking, fevers, numbness, incontinence, or any other concerning symptoms. In the case of an emergency call 911. Prescriptions: New lidocaine 5 % adhesive patch,medicated See Rx Instructions .ROUTE .COMPLEX Qty: 15 0RF Rx Instructions: leave on most painful area for up to 12 hrs No Action oxycodone 5 mg tablet 5 mg PO Q12H PRN (Reason: pain (scale score 7-10)) 10 Days Qty: 20 0RF Rx Instructions: Partial Fill upon patient request. prednisone 20 mg tablet 20 mg PO DAILY 7 Days Qty: 7 0RF Referrals: [facility] [Provider Group, Neurosurgery] Yonny rCowe MD [Primary Care Provider, Internal Medicine] Discharge Date/Time: 08/16/25 18:44 Print Language: Filipino
--- OUTSIDE RECORDS SUMMARY | 2025-08-16 11:32 | XMS_ITS | Clinical Summary ---
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 30 tablet 1 09/02/2020 Active tirzepatide, weight loss, (ZEPBOUND) 5 mg/0.5 mL subcutaneous pen Inject 5 mg under the skin every 7 days. Active ondansetron (ZOFRAN) 4 MG tablet Take 4 mg by mouth every 8 (eight) hours as needed for nausea. Active Active Problems Problem Noted Date Diagnosed Date Anxiety with depression 09/02/2020 Encounters Date Type Department Care Team Description 07/09/2025 10:20 AM EDT Office Visit [facility] [address] [place] [address] Radha Eddy MD Pelvic pain (Primary Dx) 07/09/2025 8:34 AM EDT - 07/09/2025 11:59 PM EDT Hospital Encounter [facility] [place], OB Ultrasound [address] [place] [address] Radha Eddy MD Discharge Disposition: Home or Self Care 06/25/2025 3:34 PM EDT - 06/25/2025 11:59 PM EDT Hospital Encounter [facility] [place] [place] [address] Radha Eddy MD Discharge Disposition: Home or Self Care 06/25/2025 2:50 PM EDT Office Visit [facility] [address] [place] [address] [place] [address] Radha Eddy MD Irregular menses (Primary Dx); Family history of breast cancer gene mutation in first degree relative; Acute midline low back pain, unspecified whether sciatica present from Last 3 Months Family History Medical History Relation Comments Drug abuse Brother Depression Father Seizures Father Bladder Cancer Maternal Grandmother Colon cancer Maternal Grandmother Esophageal cancer Maternal Grandmother Anxiety disorder Mother BRCA 1/2 Mother Breast cancer Mother Alcohol abuse Sister Relation Status Comments Brother Father Alive Maternal Grandmother Mother Alive Sister Alive Social History Tobacco Use Types Packs/Day Years Used Date Smoking Tobacco: Never Smokeless Tobacco: Never Alcohol Use Standard Drinks/Week Comments Yes 0 (1 standard drink = 0.6 oz pur e alcohol) 1 glass of wine once a month Education Answer Date Recorded Are you interested in more education? Not on radha e 02/03/2023 Are you concerned about learning? Not on file 02/03/2023 No 02/03/2023 No 02/03/2023 Digital Access Answer Date Recorded No 03/04/2023 No 03/04/2023 Reliable internet access at home? Not on file 03/04/2023 Device with a working camera? Not on file Comments Unknown Sex and Gender Information Value Date Recorded Sex Assigned at Not on file Legal Sex Female 10:28 PM EDT Gender Identity Not on file Sexual Orientation Not on file Last Filed Vital Signs Vital Sign Reading Time Taken Comments Blood Pressure 126/74 07/09/2025 10:16 AM EDT Pulse 80 12/02/2015 11:31 AM EST Temperature 36.6 C (97.8 F) 12/02/2015 11:31 AM EST Respiratory Rate 16 12/02/2015 11:31 AM EST Oxygen Saturation - - Inhaled Oxygen Concentration - - Weight 83.5 kg (184 lb) 06/25/2025 2:51 PM EDT Height 162.6 cm (5' 4 ) 06/25/2025 2:51 PM EDT Body Mass Index 31.58 06/25/2025 2:51 PM EDT Plan of Treatment Upcoming Encounters Date Type Department Care Team (Late st Contact Info) Description 06/25/2025 Procedure Pass [address] [address] 09/01/2025 1:00 PM EST Telemedicine [facility] [address] [place] [address], 10th Floor, [address] [place] [address] Juan Fraga MD, PhD [address] [place] [address] [address] [place] [address] [email or web address] Fiordaliza Mustafa [address] [place] [phone] [email or web address] 02/17/2026 8:30 AM EDT Appointment [address] [address] Radha Eddy MD [address] [place] [address], [address] [place] [address] [email or web address] Health Maintenance Due Date Last Done Comments Adult Td,Tdap Booster 1983 DEPRESSION SCREENING 1995 HEPATITIS C SCREENING 12/11/2001 HIV ONE-TIME SCREENING (18-6 5 YEARS) 12/11/2001 PAP SMEAR 08/20/2013 08/20/2010 MAMMOGRAM 2023 INFLUENZA VACCINE (#1) 2025 COVID-19 VACCINE (2024-2 6 season) 2025 06/22/2021, 06/01/2021 SCREENING FOR DIABETES 06/25/2028 06/25/2025 SMOKING STATUS SCREENING (On ce After 26 Yrs) Completed 07/09/2025 HEPATITIS A VACCINES Aged Out No long er eligible based on patient's age to complete this topic HIB VACCINES Aged Out No longer eligi ble based on patient's age to complete this topic IPV VACCINES Aged Out No longer eligi ble based on patient's age to complete this topic MENINGOCOCCAL VACCINES (ACWY) Aged Out No longer eligible based on patient's age to complete this topic MENINGOCOCCAL VACCINES (B) Aged Out N o longer eligible based on patient's age to complete this topic PNEUMOCOCCAL VACCINES (0-49 years) Aged Out No longer eligible b ased on patient's age to complete this topic Medical Devices Not on file Procedures Procedure Name Priority Date/Time Associated Diagnosis Comments US PELVIS TRANSABDOMINAL PLUS TRANSVAGINAL Routine 07/09/2025 9:30 AM EDT Irregular menses URINALYSIS WITH REFLEX TO URINE CULTURE Routine 06/25/2025 5:03 PM EDT Acute midline low back pain, unspecified whether sciatica present HEMOGLOBIN A1C Routine 06/25/2025 4:03 PM EDT Irregular menses PROLACTIN Routine 06/25/2025 4:03 PM EDT Irregular menses TSH WITH REFLEX Routine 06/25/2025 4:03 PM EDT Irregular menses POCT URINE HCG Routine 06/25/2025 3:18 PM EDT Irregular menses from Last 3 Months Results * US PELVIS TRANSABDOMINAL PLUS TRANSVAGINAL (07/09/2025 9:30 AM EDT) Anatomical Region Laterality Modality Pelvis, Uterus/Adnexa Ultrasound 07/09/2025 9:31 AM EDT Impressions 07/09/2025 9:54 AM EDT 1. Heterogeneous uterus with at least 2 masses consistent with fibroids as described above. 2. The endometrium measures 6 mm but the endometrial/myometrial interface was difficult to determine. There are no focal masses visualized. 3. The ovaries appear grossly normal. 4. There is no free fluid. Narrative 07/09/2025 9:54 AM EDT US PELVIS TRANSABDOMINAL AND TRANSVAGINAL Referring clinician's provided indication for this examination in [facility]: Pain, irregular menses Procedure: US PELVIS TRANSABDOMINAL AND TRANSVAGINAL 07/09/2025 8:48 AM US Indications: Pain, Irregular menses Comparison: No relevant recent comparisons. Technique: Transabdominal sonography of the pelvis was performed. In addition, transvaginal imaging was performed to better evaluate the adnexae and ovaries. Color Doppler imaging was performed to assess vascularity. No 3-D images were acquired. Reported LMP: FINDINGS: Uterus: The uterus measurements acquired; 8.75 cm x 4.70 cm x 4.50 cm with volume of 96.90 ml. The uterus is anteverted in its positioning. The myometrium is heterogeneous with fibroids located anterior 1.0 x 0.7 x 0.8 cm and posterior 1.0 x 1.2 x 1.2 cm. Endometrium: The endometrium measures 0.6 cm with poorly defined margins. No endometrial masses seen. No fluid is identified within the endometrial canal. No focal cervical masses. Ovaries: The right ovary measures 2.27 cm x 1.52 cm x 1.68 cm with volume of 3.04 ml. Appears grossly normal Right Adnexa: wnl The left ovary measures 2.64 cm x 1.78 cm x 1.90 cm with volume of 4.67 ml. Appears grossly normal Left Adnexa: wnl Cul de Sac: There is no evidence of free pelvic fluid. Tech Comments: Procedure Note Octavio Moya MD - 07/09/2025 US PELVIS TRANSABDOMINAL AND TRANSVAGINAL Referring clinician's provided indication for this examination in [facility]:Pain, irregular menses Procedure: US PELVIS TRANSABDOMINAL AND TRANSVAGINAL 07/09/2025 8:48 AM US Indications: Pain, Irregular menses Comparison: No relevant recent comparisons. Technique: Transabdominal sonography of the pelvis was performed. Inaddition, transvaginal imaging was performed to better evaluate theadnexae and ovaries. Color Doppler imaging was performed to assessvascularity. No 3-D images were acquired. Reported LMP: FINDINGS: Uterus: The uterus measurements acquired; 8.75 cm x 4.70 cm x 4.50 cm with volumeof 96.90 ml. The uterus is anteverted in its positioning. Themyometrium is heterogeneous with fibroids located anterior 1.0 x 0.7 x 0.8 cm and posterior 1.0 x 1.2x 1.2 cm. Endometrium: The endometrium measures 0.6 cm with poorly defined margins. Noendometrial masses seen. No fluid is identified within the endometrialcanal. No focal cervical masses. Ovaries: The right ovary measures 2.27 cm x 1.52 cm x 1.68 cm with volume of 3.04ml. Appears grossly normal Right Adnexa: wnl The left ovary measures 2.64 cm x 1.78 cm x 1.90 cm with volume of 4.67ml. Appears grossly normal Left Adnexa: wnl Cul de Sac: There is no evidence of free pelvic fluid. Tech Comments: IMPRESSION: 1. Heterogeneous uterus with at least 2 masses consistent with fibroidsas described above. 2. The endometrium measures 6 mm but the endometrial/myometrial interfacewas difficult to determine. There are no focal masses visualized. 3. The ovaries appear grossly normal. 4. There is no free fluid. us Radha Eddy MD IMG US PELVIS Final Result * Urinalysis w/reflex Urine Culture (06/25/2025 5:03 PM EDT) COLOR Yellow Yellow [facility] CLARITY HAZY [facility] GLUCOSE Negative Negative [facility] BILI Negative Negative [facility] KETONES Negative Negative [facility] SPECIFIC GRAVITY 1.015 1.005 - 1.030 [facility] BLOOD Negative Negative [facility] PH 8.0 5.0 - 8.0 [facility] Protein-UA Negative Negative [facility] NITRITE Negative Negative [facility] Leukocyte esterase, ur Negative Negative [facility] Urine (Urine) 06/25/2025 5:0 3 PM EDT 06/25/2025 8:39 PM EDT us Radha Eddy MD LAB URINE ORDERABLES Final Res ult [address] [address] * TSH with reflex (06/25/2025 4:03 PM EDT) TSH 2.38 0.27 - 4.20 uIU/mL [facility] Blood 06/25/2025 4:03 PM EDT 06/25/2025 4:07 PM EDT us Radha Eddy MD LAB BLOOD BKR ORDERABLES Final Result [address] [address] * Prolactin (06/25/2025 4:03 PM EDT) PROLACTIN 10.0 4.8 - 23.3 ng/mL [facility] Blood 06/25/2025 4:03 PM EDT 06/25/2025 4:07 PM EDT us Radha Eddy MD LAB BLOOD BKR ORDERABLES Final Result [address] [address] * Hemoglobin A1c (06/25/2025 4:03 PM EDT) HEMOGLOBIN A1C 4.7 4.3 - 5.8 % [facility] Blood 06/25/2025 4:03 PM EDT 06/25/2025 4:06 PM EDT us Radha Eddy MD LAB BLOOD BKR ORDERABLES Final Result Performing Organization Address City/[facility]/ZIP Co de Phone Number [address] [address] * Poct Urine HCG (06/25/2025 3:18 PM EDT) HCG, urine Negative, Internal QCs acceptable Negative [facility] Other 06/25/2025 3:18 PM EDT us Radha Eddy MD LAB POCT ENTER/EDIT ORDERABLES Final Result [facility] [address] [facility] 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 It is not the complete legal health record.[facility]
[2025-08-16 12:00] VITALS: BP 132/86; PULSE 72; RESP 20; O2SAT 96
[2025-08-16 12:05] LABS: Hematocrit 39.4 % (37.0-47.0); Hemoglobin 13.6 g/dl (12.0-16.0); Imm Gran Abs Auto 0.02 X10*3/uL (0.00-0.03); Imm Gran Pct Auto 0.2 % (0.0-0.4); Lymphocytes Absolute Auto 3.1 X10*3/uL (1.2-4.9); MANUAL DIFF FLAG NO; Mean Corpuscular HGB Conc 34.5 g/dl (31.0-35.0); Mean Corpuscular Hemoglobin 31.5 pg (27.0-33.0); Mean Corpuscular Volume 91.2 fL (80.0-98.0); NRBC Abs Auto 0.000 X10*3/uL (0.0-0.012); NRBC Pct Auto 0.0 /100WBC (0.0-0.2); Platelet Count 243 X10*3/uL (160-400); Red Blood Count 4.32 X10*6/uL (4.20-5.50); White Blood Count 8.1 X10*3/uL (4.8-10.8)
[2025-08-16 12:20] LABS: Alanine Aminotransferase 63 U/L (0-31); Albumin Level 4.1 g/dL (3.5-5.0); Alkaline Phosphatase 31 U/L (39-117); Anion Gap 12 (12-20); Aspartate Amino Transferase 27 U/L (5-31); Blood Urea Nitrogen 15 mg/dL (9-16); Calcium 8.5 mg/dL (8.4-10.2); Carbon Dioxide 22 mmol/L (22-29); Chloride 112 mmol/L (96-108); Creatinine Clr Calc Pharmacy 99.5; Estimated Glomerular Filt Rate > 60; Potassium 3.9 mmol/L (3.3-5.1); Sodium 142 mmol/L (135-145); Total Protein 6.2 g/dL (6.5-8.0)
[2025-08-16 12:51] LABS: Erythrocyte Sedimentation Rate 2 MM/HR (0-20)
[2025-08-16 14:00] VITALS: BP 130/80; PULSE 70; RESP 20; O2SAT 97
[2025-08-16 15:32] LABS: Appearance Urine Clear; Glucose Urine UA Negative (Negative); PH 6.0 (5.0-9.0); Specific Gravity - Urine >= 1.030 (1.005-1.025)
[2025-08-16 15:55] LABS: UPreg QC Valid YES
[2025-08-16 16:56] VITALS: BP 120/82; PULSE 75; RESP 16; TEMP 36.9; O2SAT 100
[2025-08-16 18:22] VITALS: BP 129/82; PULSE 67; RESP 16; TEMP 36.6; O2SAT 97
[2025-08-16] MEDS: oxyCODONE HCl Immed Release 15 MG TABLET PO (18:34)
[2025-08-16] MEDS: Lidocaine 4 % Patch ADH..PATCH 1 PATCH TRANSDERMA (18:35)
== END 2025-08-16 18:44 | disposition home or self-care (01) ==
PROVIDERS: Physician Assistant Medical; Emergency Provider Emergency Medicine Emergency Medical Services; PCP Internal Medicine
DX: M51.17 Intervertebral disc disorders with radiculopathy, lumbosacral region (principal); M25.551 Pain in right hip; Z88.0 Allergy status to penicillin
CPT/HCPCS: 36415; 73502; 74176; 80053; 81003; 81025; 84702; 85025; 85652; 86140; 96374; 96375; 99283; 99284; J1885; J2270; J2405

== ENCOUNTER → 2025-08-16 11:41 | Outpatient (BNV) | payer OTHER, SELFPAY | PROVIDERS: Emergency Provider Emergency Medicine Emergency Medical Services; PCP Internal Medicine; Visit Provider Radiology Diagnostic Radiology | DX: M25.551 Pain in right hip (principal); M54.50 Low back pain, unspecified; R22.41 Localized swelling, mass and lump, right lower limb | CPT/HCPCS: 73502; 74176 ==

== ENCOUNTER 2025-08-18 13:49 | Outpatient (AMB) | payer OTHER, SELFPAY ==
--- NOTE | 2025-08-18 13:59 | HO.SPINEOV ---
Intake Visit Reasons: ED f/u Intake Note: Ms. David is here today c/o low back pain and difficulty with walking. 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 David is a 39-year-old female who presents today for follow-up after she was in the emergency room just a few days ago. She began having back pain a number of months ago that she thought might be related somehow to a an ovarian cyst or some other issue. It was persistent and bothersome but she generally just worked through it with a little bit of ibuprofen and activity modification. Two weeks ago she fell down the stairs when she was vacuuming and slipped. Initially the pain was not all that bad but over the course of a few days that escalated to severe back pain radiating down her right leg into her posterolateral calf. The patient reports that the pain was so intense that it would bring her to tears. She also started to develop footdrop. No bowel or bladder incontinence, no peroneal numbness. She started taking ibuprofen but the pain was just so intense that it ultimately landed her in the emergency room. She was started on steroids and narcotic which made her feel slightly better, she underwent a abdominal pelvic CT which revealed a large herniated disc at L4-5. She was sent in follow-up to see us in the office so I brought her in urgently today for a visit. PMH: She is otherwise healthy, she has lost a significant amount of weight after taking Zepbound, but other than that just gallbladder removal and no other major medical problems. Social hx: She does not smoke, but does use marijuana daily, no regular alcohol use Medications: Zepbound, prednisone, oxycodone Allergies: Amoxicillin gave her a rash Physical exam: Awake alert oriented, she is very uncomfortable, has a hard time just going to a standing position from a chair. She limps around the room and has a very antalgic gait. Positive straight leg raise at 20 degrees. She could not tolerate much manipulation of her leg at all. On static motor testing, she has a 3/5 weakness of her right dorsiflexor. Full strength of plantar flexion. Reflexes at the patella and the Achilles are intact. Imaging review: [place] abdominal CT shows what looks like herniated disc at L4-5, it looks like it is filling most of the spinal canal but within limitations of CT this assessment is limited. Impression: 39-year-old female presents with 2-3 months of back pain, aggravated by a fall a few weeks ago down a flight of stairs now with what looks like a very large ruptured herniated disc at L4-5, which appears to be filling most of the spinal canal. She has weakness of her right foot, positive straight leg raise. For now she is just barely getting by with the prednisone and oxycodone. I am putting her in for a stat/urgent MRI, but I have tentatively put her on the schedule for August 28. She will have to stop her Zepbound 1 week prior to surgery. I quoted success rate at surgery at 80- 90% for improvement in the pain, however I did admonished her that the foot weakness may take longer to recover and may not ever recover completely. She understands that she has to be on lifting restrictions 6-8 weeks after surgery as there is risk the disc could be herniate. I will update Dr. Estrada in the patient's status, and review the imaging with him. The patient was given risk and benefits of surgery including but not limited to infection, hematoma, nerve injury, durotomy, weakness, bowel/bladder injury, persistent pain, recurrent herniated disc and persistent weakness. We also discussed the option to continue with conservative treatment and patient wishes to proceed with surgery. They are aware they should stop NSAIDs 7 days prior to surgery. All questions were answered to the best of our ability. If there is anything about this patients medical history that we have overlooked or concerns you have about us proceeding with surgery we would appreciate any input you can offer Thank you for allowing us to care for your patient. The total time spent with this visit with this patient was 45 minutes reviewing history, physical exam, lumbar imaging review, and implementation of treatment plan or further diagnostic testing Darrel Estrada MD,PhD [facility] Orders: Orders MR lumbar spine wo con Today M51.26 - Other intervertebral disc displacement, lumbar region Coding Level of Care Code New Pt Level 4 (83415) Diagnoses Lumbar disc herniation M51.26
--- OUTSIDE RECORDS SUMMARY | 2025-08-18 16:02 | XMS_ITS | Clinical Summary ---
Author Organization [facility] Address [address] [place] [phone] Phone Care Team Providers Care Rn Home Health Name Role Phone Yonny Crowe MD Primary [...] [facility] [address] [place] [address] Radha Eddy MD Pelvic pain (Primary Dx) 07/09/2025 8:34 AM EDT - 07/09/2025 11:59 PM EDT Hospital Encounter [facility] [place], OB Ultrasound [address] [place] [address] Radha Eddy MD Discharge Disposition: Home or Self Care 06/25/2025 3:34 PM EDT - 06/25/2025 11:59 PM EDT Hospital Encounter [facility] [place] [place] [address] Radha Eddy MD Discharge Disposition: Home or Self Care 06/25/2025 2:50 PM EDT Office Visit [facility] [address] [place] [address] [place] [address] Radha Eddy MD Irregular menses (Primary Dx); [...] st Contact Info) Description 06/25/2025 Procedure Pass [address] [address] 09/01/2025 1:00 PM EST Telemedicine [facility] [address] [place] [address], 10th Floor, [address] [place] [address] Juan Fraga MD, PhD [address] [place] [address] [address] [place] [address] [email or web address] Fiordaliza Mustafa [address] [place] [phone] [email or web address] 02/17/2026 8:30 AM EDT Appointment [address] [address] Radha Eddy MD [address] [place] [address], [address] [place] [address] [email or web address] Health Maintenance Due Date Last Done Comments [...] clinician's provided indication for this examination in [facility]: Pain, irregular menses Procedure: US PELVIS TRANSABDOMINAL [...] clinician's provided indication for this examination in [facility]:Pain, irregular menses Procedure: US PELVIS TRANSABDOMINAL AND [...] (06/25/2025 5:03 PM EDT) COLOR Yellow Yellow [facility] CLARITY HAZY [facility] GLUCOSE Negative Negative [facility] BILI Negative Negative [facility] KETONES Negative Negative [facility] SPECIFIC GRAVITY 1.015 1.005 - 1.030 [facility] BLOOD Negative Negative [facility] PH 8.0 5.0 - 8.0 [facility] Protein-UA Negative Negative [facility] NITRITE Negative Negative [facility] Leukocyte esterase, ur Negative Negative [facility] Urine (Urine) 06/25/2025 5:0 3 PM EDT 06/25/2025 8:39 PM EDT us Radha Eddy MD LAB URINE ORDERABLES Final Res ult [address] [address] * TSH with reflex (06/25/2025 4:03 PM EDT) TSH 2.38 0.27 - 4.20 uIU/mL [facility] Blood 06/25/2025 4:03 PM EDT 06/25/2025 4:07 PM EDT us Radha Eddy MD LAB BLOOD BKR ORDERABLES Final Result [address] [address] * Prolactin (06/25/2025 4:03 PM EDT) PROLACTIN 10.0 4.8 - 23.3 ng/mL [facility] Blood 06/25/2025 4:03 PM EDT 06/25/2025 4:07 PM EDT us Radha Eddy MD LAB BLOOD BKR ORDERABLES Final Result [address] [address] * Hemoglobin A1c (06/25/2025 4:03 PM EDT) HEMOGLOBIN A1C 4.7 4.3 - 5.8 % [facility] Blood 06/25/2025 4:03 PM EDT 06/25/2025 4:06 PM EDT us Radha Eddy MD LAB BLOOD BKR ORDERABLES Final Result Performing Organization Address City/[facility]/ZIP Co de Phone Number [address] [address] * Poct Urine HCG (06/25/2025 3:18 PM EDT) HCG, urine Negative, Internal QCs acceptable Negative [facility] Other 06/25/2025 3:18 PM EDT us Radah Eddy MD LAB POCT ENTER/EDIT ORDERABLES Final Result [facility] [address] [facility] [place] [address], [facility] from Last 3 Months Insurance [facility] POS EPO [facility] POS [facility]PO [facility] POS EPO [facility] POS EPO [facility] POS EPO [facility] POS EPO [facility] POS EPO [employer] O POS EPO Care Teams Rn Home Health Relationship Specialty Start Date End Date Yonny Crowe MD [address] [place] [id number] PCP - General Internal Medicine 06/25/25 Additional Source Comments The information contained in this document represents components of the legal health record. It is not the complete legal health record.[facility]
== END 2025-08-18 14:31 | disposition home or self-care (01) ==
LOC: HO.HNS 13:49
PROVIDERS: PCP Internal Medicine; Visit Provider Physician Assistant
DX: M51.26 Other intervertebral disc displacement, lumbar region (principal)
CPT/HCPCS: 99204

== ENCOUNTER 2025-08-20 10:08 | Outpatient (AMB) | payer OTHER, SELFPAY ==
--- NOTE | 2025-08-20 10:12 | MHC.PC.OV ---
Vital Signs 08/20/25 10:14 Height 5 ft 3 in Weight 187 lb 8 oz BMI 33.2 BP 130/70 Blood Pressure Location Lt brachial Position Sitting Pulse 73 Pulse Source Pulse Oximeter Temp 97.3 F Temp Source Temporal Artery Scan Pulse Oximetry (%) 100 Oxygen Delivery Method Room Air Intake Visit Reasons: [facility] 08/16 lump on back with pain diff walking Intake Note: Patient is here to follow-up after a visit the emergency department at [facility] on 08/16/25. Eyewear Consultant Required: No Energy Risk Management Analyst: Not Required per policy Accompanied by: Self / Same As Patient Allergies amoxicillin (AMOXICILLIN) Allergy (Unknown, Verified 08/20/25 10:13) RASH Amoxicillin Allergy (Unknown, Uncoded 08/20/25 10:13) hives Tobacco use date assessed: 08/20/25 Dental Screening Dental Screen Date: 08/20/25 Did you have a dental visit in the last 12 months?: No Did you have a dental problem in the last 6 months where you did not have access to dental care?: No Was dental information given to patient?: No [facility] Medical History Dysthymia COVID-19 Surgical History H/O section History of cholecystectomy Family History Mother No problems noted. Father No problems noted. 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 1. Little interest or pleasure in doing things: several days 2. Feeling down, depressed, or hopeless: not at all 3. Trouble falling or staying asleep, or sleeping too much: not at all 4. Feeling tired or having little energy: not at all 5. Poor appetite or overeating: not at all 6. Feeling bad about yourself - or that you are a failure or have let yourself or your family down: not at all 7. Trouble concentrating on things, such as reading the newspaper or watching television: not at all 8. Moving or speaking so slowly that other people could have noticed. Or the opposite - being so fidgety or restless that you have been moving around a lot more than usual: not at all 9. Thoughts that you would be better off or of hurting yourself in some way: not at all Total score: 1 Depression Screening Interpretation: Positive Depression Screening Done: Yes Source: Developed by Drs. Eze Markham, Veronica Painter, Rony Ibanez and colleagues, with an educational zara from [employer]. Thrive Questionnaire Date Thrive assessed: 08/20/25 I am a: Patient What is your living situation today?: I have a steady place to live Within the past 12 months, did the food you bought not last and you didn't have the money to get more?: Never true Within the past 12 months, did you worry whether your food would run out before you got money to buy more?: Never true Do you have trouble paying for medicines?: No Do you have trouble getting transportation to medical appointments?: No Do you have trouble paying your heating and electricity bill?: No Do you have trouble taking care of your child, family member or friend?: No Do you have trouble with day-to-day activities such as bathing, preparing meals, shopping, managing finances, etc.?: No Are you currently unemployed and looking for a job?: No Are you interested in more education?: No Please select the resources that you would like help with: None Currently or been in a relationship where the following occur: No concerns reported THRIVE Score: 0 AUDIT C Alcohol Use Questionnaire (AUDIT-C) 1. How often do you have a drink containing alcohol?: Monthly or less 2. How many drinks containing alcohol do you have on a typical day when you are drinking?: 1 or 2 3. How often do you have six or more drinks on one occasion?: Never Total Score: 1 LUIS ANTONIO-7 AMB Questionnaire LUIS ANTONIO-7 Date LUIS ANTONIO - 7 assessed: 08/20/25 Feeling nervous, anxious, or on edge: 1 = Several days Not being able to stop or control worryin = Several days Worrying too much about different things: 1 = Several days Trouble relaxin = Several days Being so restless that it is hard to sit still: 1 = Several days Becoming easily annoyed or irritable: 1 = Several days Feeling afraid as if something awful might happen: 1 = Several days Total LUIS ANTONIO-7 score (0-4 normal; 5-9 mild; 10-14 moderate; 15-21 severe): 7 Source: Developed by Drs. Eze Markham, Veronica Painter, Rony Ibanez and colleagues, with an educational zara from [employer]. Physical exam (Primary Care) Vital Signs: Last Vital Signs Temp 97.3 F 08/20/25 10:14 Pulse 73 08/20/25 10:14 BP 130/70 08/20/25 10:14 Pulse Ox 100 08/20/25 10:14 Oxygen Delivery Method Room Air 08/20/25 10:14 BMI result Body Mass Index 33.2 Tobacco/Smoking Status: Tobacco use Status Tobacco use date assessed 08/20/25 08/20/25 10:20 Patient Tobacco Use Status Never used Tobacco 08/20/25 10:20 e-Cigarette/Vaping Use Never Used 08/20/25 10:20 PHQ-9: PHQ-9 Score PHQ-9: Total score 1 08/20/25 10:20 Depression Screening Interpretation: Positive Thrive Assessment: Date of Thrive Assessment Date Thrive assessed 08/20/25 08/20/25 10:20 Currently or been in a relationship where the following occur: No concerns reported Coding Level of Care Code Est Pt Level 4 (55324) Complex EM visit Add On G2211 Diagnoses Lumbar disc herniation M51.26 Assessment & Plan Assessment & Plan (1) Lumbar disc herniation: Code(s): M51.26 - Other intervertebral disc displacement, lumbar region Category: Medical Plan: History of Present Illness - The patient is a 39-year-old female who presents for a pain medication refill. - She reports the onset of severe back pain in her spine and tailbone area approximately a month and a half ago, initially suspecting an ovarian cyst, which was ruled out by an ultrasound. - The pain progressively worsened last week, prompting a visit to the emergency room on Monday. - A CT scan and X-rays performed there revealed a large herniated disc at L4 and L5. - Following the ER visit, she received a course of prednisone, which she completed today, and pain medication. - She saw a surgeon on Monday and is scheduled for discectomy surgery next . Social History - Employment: The patient reports she sits for work all day. Review of Systems - Musculoskeletal: Reports severe back pain in the spine and tailbone area. Physical Exam General: Cooperative and healthy appearing Nutritional Appearance: Well nourished Orientation/consciousness: Patient oriented x3 Limitations: No limitations Head: Normal to inspection General: Appearance normal, both eyes and all related structures Neck: Normal visual inspection Chest: Normal palpation of entire chest wall Respiratory: N ormal respiratory effort Neurology: Patient oriented x3, reports back pain associated with hernia on L4 and L5. Results - Imaging: - An ultrasound was performed a month and a half ago to rule out an ovarian cyst, and the results were normal. - A CT scan and X-rays performed last Monday revealed a large herniated disc at L4 and L5. Plan Discussion Notes Patient Instructions Medications: Changed From oxycodone Partial Fill upon patient request. 5 mg PO Q8H 3 days PRN 9 tabs 0RF pain (scale score 7-10) To oxycodone Partial Fill upon patient request. 5 mg PO Q12H PRN 20 tabs 0RF pain (scale score 7-10) 10 days From prednisone 60 mg (3 x 20 mg) PO DAILY 5 days 15 tabs 0RF To prednisone 20 mg PO DAILY 7 tabs 0RF 7 days
[2025-08-20 10:14] VITALS: BP 130/70; PULSE 73; TEMP 36.3; O2SAT 100; BMI 33.2
--- OUTSIDE RECORDS SUMMARY | 2025-08-20 11:52 | XMS_ITS | Clinical Summary ---
Author Organization [facility] Address [address] [place] [phone] Phone Care Team Providers Care Meter Record Clerk Name Role Phone Yonny Crowe MD Primary [...] [facility] [address] [place] [address] Radha Eddy MD Pelvic pain (Primary Dx) 07/09/2025 8:34 AM EDT - 07/09/2025 11:59 PM EDT Hospital Encounter [facility] [place], [facility] Ultrasound [address] [place] [address] Radha Eddy MD Discharge Disposition: Home or Self Care 06/25/2025 3:34 PM EDT - 06/25/2025 11:59 PM EDT Hospital Encounter [facility] [place] [place] [address] Radha Eddy MD Discharge Disposition: Home or Self Care 06/25/2025 2:50 PM EDT Office Visit [facility] [address] [place] [address] [place] [address] Radha Eddy MD Irregular menses (Primary Dx); [...] st Contact Info) Description 06/25/2025 Procedure Pass [address] [address] 09/01/2025 1:00 PM EST Telemedicine [facility] [address] [place] [address], 10th Floor, [address] [place] [address] Juan Fraga MD, PhD [address] [place] [address] [address] [place] [address] [email or web address] [address] [place] [address] [email or web address] 02/17/2026 8:30 AM EDT Appointment [address] [address] Radha Eddy MD [address] [place] [address], [address] [place] [address] [email or web address] Health Maintenance Due Date Last Done [...] clinician's provided indication for this examination in [facility]: Pain, irregular menses Procedure: US PELVIS TRANSABDOMINAL [...] clinician's provided indication for this examination in [facility]:Pain, irregular menses Procedure: US PELVIS TRANSABDOMINAL AND [...] (06/25/2025 5:03 PM EDT) COLOR Yellow Yellow [facility] CLARITY HAZY [facility] GLUCOSE Negative Negative [facility] BILI Negative Negative [facility] KETONES Negative Negative [facility] SPECIFIC GRAVITY 1.015 1.005 - 1.030 [facility] BLOOD Negative Negative [facility] PH 8.0 5.0 - 8.0 [facility] Protein-UA Negative Negative [facility] NITRITE Negative Negative [facility] Leukocyte esterase, ur Negative Negative [facility] Urine (Urine) 06/25/2025 5:0 3 PM EDT 06/25/2025 8:39 PM EDT us Radha Eddy MD LAB URINE ORDERABLES Final Res ult [address] [address] * TSH with reflex (06/25/2025 4:03 PM EDT) TSH 2.38 0.27 - 4.20 uIU/mL [facility] Blood 06/25/2025 4:03 PM EDT 06/25/2025 4:07 PM EDT us Radha Eddy MD LAB BLOOD BKR ORDERABLES Final Result [address] [address] * Prolactin (06/25/2025 4:03 PM EDT) PROLACTIN 10.0 4.8 - 23.3 ng/mL [facility] Blood 06/25/2025 4:03 PM EDT 06/25/2025 4:07 PM EDT us Radha Eddy MD LAB BLOOD BKR ORDERABLES Final Result [address] [address] * Hemoglobin A1c (06/25/2025 4:03 PM EDT) HEMOGLOBIN A1C 4.7 4.3 - 5.8 % [facility] Blood 06/25/2025 4:03 PM EDT 06/25/2025 4:06 PM EDT us Radha Eddy MD LAB BLOOD BKR ORDERABLES Final Result Performing Organization Address City/[facility]/ZIP Co de Phone Number [address] [address] * Poct Urine HCG (06/25/2025 3:18 PM EDT) HCG, urine Negative, Internal QCs acceptable Negative [facility] Other 06/25/2025 3:18 PM EDT us Radha Eddy MD LAB POCT ENTER/EDIT ORDERABLES Final Result [facility] [address] [place] [address], [facility] from Last 3 Months Insurance [facility] POS EPO [facility] POS [facility]PO [facility] POS [facility]PO [facility] POS EPO [facility] POS [facility]PO [facility] POS EPO [facility] POS EPO [facility] POS EPO [employer] POS EPO Care Teams Meter Record Clerk Relationship Specialty Start Date End Date Yonny Crowe MD [address] [place] [id number] PCP - General Internal Medicine 06/25/25 Additional Source Comments The information contained in this document represents components of the legal health record. It is not the complete legal health record.[facility]
== END 2025-08-20 10:34 | disposition home or self-care (01) ==
LOC: HO.HMCH 10:09
PROVIDERS: PCP Internal Medicine; Visit Provider Internal Medicine
DX: M51.26 Other intervertebral disc displacement, lumbar region (principal)

== ENCOUNTER 2025-08-20 18:44 | Outpatient (REF) | payer OTHER, SELFPAY ==
--- NOTE | ~2025-08-20 | MR_ITS ---
CLINICAL HISTORY: M51.26 - Other intervertebral disc displacement, lumbar region --- Additional Notes or Special Instructions: large disk herniation seen on CT of abdomen MR lumbar spine without intravenous contrast Comparison: CT of the abdomen and pelvis and bone windows from 08/16/2025. Findings: No significant change in vertebral heights or vertebral alignments. Mixed signal supports subacuity of the Schmorl's node in the lower endplate of the L4. Mild/minimal retrolisthesis of the L4-L5. Multifocal endplate changes including Modic type 1 and Modic type 2 at L3-L4 to the lumbosacral junction. Heterogeneous marrow signal accentuated by small hemangiomas. The conus terminates at L1, with 5 lumbar type vertebrae. No drainable paraspinal fluid collection. Subcutaneous edema is noted, particularly dependently. Borderline low T2 signal of the imaged liver is nonspecific and can be associated with early and/or developing mineral deposition. L1-L2: Bilateral facet arthropathy. No spinal stenosis. L2-L3: Disc bulge and bilateral facet arthropathy. No spinal stenosis. L3-L4: Disc bulge, annular fissure, small extrusion, endplate hypertrophy, and bilateral facet arthropathy. Mild/minimal spinal canal stenosis. Trace left foraminal narrowing. L4-L5: Disc extrusion, endplate hypertrophy, and bilateral facet arthropathy, severe spinal canal stenosis. Mild bilateral foraminal narrowing. Facet arthropathy including facet effusions. L5-S1: Disc bulge, annular fissure, endplate hypertrophy, and bilateral facet arthropathy. No significant central spinal canal stenosis. Mild bilateral lateral recess narrowing. No significant foraminal narrowing, accounting for positioning. IMPRESSION: 1. Disc extrusion at L4-L5 with severe spinal canal stenosis. 2. Additional degenerative changes include multifocal facet arthropathy. This document has been electronically signed by: Crispin Rodriguez MD on 08/20/2025 20:39:51
== END 2025-08-20 18:45 | disposition home or self-care (01) ==
LOC: HO.MRI 18:44
PROVIDERS: PCP Internal Medicine; Visit Provider Physician Assistant
DX: M51.26 Other intervertebral disc displacement, lumbar region (principal)
CPT/HCPCS: 72148

== ENCOUNTER → 2025-08-20 18:44 | Outpatient (BNV) | payer OTHER, SELFPAY | PROVIDERS: PCP Internal Medicine; Visit Provider Radiology Neuroradiology | DX: M51.26 Other intervertebral disc displacement, lumbar region (principal); M48.061 Spinal stenosis, lumbar region without neurogenic claudication | CPT/HCPCS: 72148 ==

== ENCOUNTER 2025-08-28 05:48 | Day surgery (SDC) | payer OTHER, SELFPAY ==
[2025-08-22 08:48] VITALS: BMI 33.2
--- NOTE | 2025-08-22 09:08 | HO.ANESPROP2 ---
Documented by User: Inocencia Valencia NP 08/22/25 09:11 HPI - Anesthesia Eval Consult details Narrative: 39yo F Right L4-5 MicroLumbar discectomy, 08/28/25 Prednisone 60mg daily rx'd by spine Severe PONV s/p ariel 2017 Hx palpitations - negative w/u with echo 2022 [facility] Active Problems Active Problems: All Active Problems Lumbar disc herniation (Acute) Dysthymia (Acute) Skin swelling (Acute) ARTIS positive (Acute) Polyarthralgia (Acute) RUQ pain (Acute) Low vitamin D level (Acute) Elevated fasting glucose (Acute) Hypertension (Acute) Obesity (BMI 30-39.9) (Acute) Neck fullness (Acute) Anxiety (Acute) Encounter to establish care (Acute) Abdominal bloating (Acute) Leg swelling (Acute) Headache (Acute) GERD (gastroesophageal reflux disease) (Acute) Intermittent chest pain (Acute) Heart palpitations (Acute) Elevated blood pressure reading (Acute) Past Medical History Medical History PONV (postoperative nausea and vomiting) Palpitations Anxiety HTN (hypertension) GERD (gastroesophageal reflux disease) Polyarthralgia Family History Family History Mother No problems noted. Father No problems noted. Other Substance use disorder Surgical History Surgical History H/O section History of cholecystectomy Social History Social History Housing: House Alcohol intake: current Alcohol intake frequency: a few times a month Patient Tobacco Use Status: Never used Tobacco e-Cigarette/Vaping Use: Never Used Second Hand Smoke Exposure: No Use of substances other than those prescribed or required for medical reasons: Yes Substance Use Type: Marijuana Substance Use Type Other:: smokes daily-advised to hold 3 days pre-op Substance Use Frequency: Daily Have you been hit, kicked, punched, or otherwise hurt by someone within the past year? 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 Current occupational exposures/hazards: No Cognitive needs: No Hearing needs: No Vision needs: Yes (contacts ) Meds Allergies Allergy/AdvReac Type Severity Reaction Status Date / Time amoxicillin (AMOXICILLIN) Allergy Intermediate RASH Verified 08/22/25 08:47 Home Medications ?Medication ?Instructions ?Recorded ?Confirmed ?Last Taken ?Type lidocaine 5 % topical patch See Rx Instructions .Route 08/22/25 08/22/25 Unknown History .COMPLEX PRN Back Pain ondansetron 4 mg disintegrating 4 mg PO DAILY PRN Nausea And 08/22/25 08/22/25 Unknown History tablet Vomiting prednisone 20 mg tablet 60 mg PO DAILY 08/28/25 08/28/25 08/27/25 History semaglutide 2 mg/dose (8 mg/3 mL) 0.6667 mg subcut QWEEK 08/28/25 08/28/25 08/02/25 History subcutaneous pen injector (Ozempic) Exam Height,Weight and Vital Signs: Height 5 ft 3 in Weight 85.049 kg Pertinent Lab Results Pertinent Lab Results: Laboratory Tests 08/16/25 11:59 WBC 8.1 Hgb 13.6 Hct 39.4 Plt Count 243 Sodium 142 Potassium 3.9 Chloride 112 H Carbon Dioxide 22 BUN 15 Creatinine 0.76 Narrative Narrative: ECHO 2022 Conclusions: - The left ventricular systolic function is normal. The calculated ejection fraction is 65% by biplane method. - No obvious valvular pathology seen on this study. Assessment and Plan Assessment Anesthesia Assessment: Chart Reviewed Documented by User: Jasiel Deshpande MD 08/28/25 07:24 [facility] Past Medical History Medical History PONV (postoperative nausea and vomiting) Palpitations Anxiety HTN (hypertension) GERD (gastroesophageal reflux disease) Polyarthralgia Family History Family History Mother No problems noted. Father No problems noted. Other Substance use disorder Family history of problems with anesthesia: No Surgical History Surgical History H/O section History of cholecystectomy History of Problems with Anesthesia: No Social History Social History Housing: House Alcohol intake: current Alcohol intake frequency: a few times a month Patient Tobacco Use Status: Never used Tobacco e-Cigarette/Vaping Use: Never Used Second Hand Smoke Exposure: No Use of substances other than those prescribed or required for medical reasons: Yes Substance Use Type: Marijuana Substance Use Type Other:: smokes daily-advised to hold 3 days pre-op Substance Use Frequency: Daily Have you been hit, kicked, punched, or otherwise hurt by someone within the past year? 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 Current occupational exposures/hazards: No Cognitive needs: No Hearing needs: No Vision needs: Yes (contacts ) Meds Allergies Allergy/AdvReac Type Severity Reaction Status Date / Time amoxicillin (AMOXICILLIN) Allergy Intermediate RASH Verified 08/22/25 08:47 Home Medications ?Medication ?Instructions ?Recorded ?Confirmed ?Last Taken ?Type lidocaine 5 % topical patch See Rx Instructions .Route 08/22/25 08/22/25 Unknown History .COMPLEX PRN Back Pain ondansetron 4 mg disintegrating 4 mg PO DAILY PRN Nausea And 08/22/25 08/22/25 Unknown History tablet Vomiting prednisone 20 mg tablet 60 mg PO DAILY 08/28/25 08/28/25 08/27/25 History semaglutide 2 mg/dose (8 mg/3 mL) 0.6667 mg subcut QWEEK 08/28/25 08/28/25 08/02/25 History subcutaneous pen injector (Ozempic) Exam Exam Date and Time: 08/28/25 Airway Mallampati Class: II TM Dist: >3cm Neck ROM: Full Heart: rrr Lungs: ctab vesicular Assessment and Plan Assessment Anesthesia Assessment: Anesthesia Plan Discussed Final Anesthetic Review Family History of Problems with Anesthesia: No History of Problems with Anesthesia: No NPO: Yes ASA Class: II Final Preanesthetic Review: No Changes in Pt Med Stat, Meds/Allgs Chart Reviewed, Consent Obtained/Reviewed and Anes Risks/Benef Reviewed Patient Risk: Low Procedure Risk: Low Anesthetic Plan Anesthetic Plan: GA Disposition: Standard PACU
--- NOTE | 2025-08-26 15:01 | P.DS_ITS ---
DS: Providers Provider Date of Service: 08/28/25 Date of discharge: 08/28/25 Primary care physician: Yonny Crowe MD Admitting clinician: Rigo Estrada DS: Diagnosis Discharge Diagnosis (1) Lumbar disc herniation: Status: Acute DS: Summary Time Attestation Discharge Coordination Time (in mins): 5 Quality: Safe Use of Opioids Does Pt have an Active Cancer Diagnosis on the Problem List?: No Quality: Stroke Does the patient have a stroke diagnosis?: No Physical Exam Vital Signs: Vital Signs: BMI result Body Mass Index 33.2 Discharge Plan Discharge Patient Disposition: Home, Self-Care Referrals: Yonny Crowe MD [Primary Care Provider, Internal Medicine] - 1 Week Discharge Medications: New oxycodone 5 mg tablet 5 mg PO Q8-10H PRN (Reason: pain) Qty: 20 0RF Rx Instructions: Partial Fill upon patient request. Continued ondansetron 4 mg tablet,disintegrating 4 mg PO DAILY PRN (Reason: Nausea And Vomiting) Rx Instructions: has used when on Zepbound due to side effects lidocaine 5 % adhesive patch,medicated See Rx Instructions .ROUTE .COMPLEX PRN (Reason: Back Pain) Rx Instructions: leave on most painful area for up to 12 hrs Ozempic 2 mg/dose (8 mg/3 mL) pen injector 0.6667 mg subcut QWEEK oxycodone 5 mg tablet 5 mg PO Q12H PRN (Reason: pain (scale score 7-10)) 10 Days Qty: 20 0RF Rx Instructions: Partial Fill upon patient request. Discontinued prednisone 20 mg tablet 60 mg PO QAM prednisone 20 mg tablet 60 mg PO DAILY Discharge Orders: Discharge Order (Routine); Ordered 08/28/25 Ordered By: Darrel Wang Diet: Advance to usual diet Activity on Discharge: As tolerated Activity Restrictions/Additional Instructions: After your spinal surgery we ask you to observe the following restrictions/ guidelines: Activity: It is normal to feel some discomfort as you increase your activity, but that will improve with time. We ask you avoid heavy lifting or acitivities that cause pain. As a general rule, 8lbs is a safe limit for lifting right after surgery. Walk as much as you feel comfortable but not to exhaustion. You will feel extra tired the first few days after surgery. Stay well hydrated. It is OK to walk up and down stairs You may return to driving when you are off narcotics (such as vicodin, oxycodone, dilaudid, etc), and you are back to normal functional capacity. If you have any concerns please check with office before driving. Return to work is specific to each patient and each surgery, so please speak with your doctor/PA at first follow up. Please bring paperwork such as FMLA at that time if you need it filled out. Medications: For optimum pain control, it is best to start with a combination of 500 mg of Tylenol every 4 hours with 600 mg of Motrin every 8 hours, and use narcotics as needed in between for breakthrough pain. We will give you a short supply of narcotics after surgery (usually one weeks worth). If you need more please call the office but do not use more than prescribed. You will need to give our office 48 hours notice if you need narcotics refilled and we do not fill narcotics on weekends or evenings. If you are on a narcotic, it is a good idea to take a stool softener such as colace or senna to avoid constipation If you take blood thinner such as aspirin, Plavix, Coumadin, Effient, Eliquis etc for conditions such as Afib, DVT, Pulmonary embolus, coronary disease, stents etc please speak with your surgeon about specific details as to when you can resume these medications. Follow up: Please call the office, , after surgery to arrange a 3 week follow up for wound check. Wound Care: You may remove your dressing on the first day after surgery. ?You may ?leave open to air. Please do not remove the steri strips underneath. they will fall off on their own in one week. IT IS NORMAL FOR THE WOUND TO OOZE OR BE BLOODY FOR A FEW DAYS AFTER SURGERY. ?IF THIS HAPPENS JUST PLACE NEW DRESSING OVER IT TO AVOID STAINING CLOTHES. You may shower on post op day # 1 We ask that you do not let the water soak the wound. If it does get wet, just towel dry lightly. Please do not scrub your incision or place any type of chemical/ointment on the wound. No tub baths, pools or jacuzzis for one month. If you have any leaking or redness from your wound, or fevers, please call office Print Language: Turkish
[2025-08-28] VITALS (8 sets, daily range): BP systolic 128–153; BP diastolic 73–100; PULSE 81–94; RESP 10–20; TEMP 36.1–37.2; O2SAT 93–98; BMI 33.2
--- NOTE | ~2025-08-28 | FL_ITS ---
EXAMINATION: XR FLUOROSCOPY WITH IMAGES CLINICAL INFORMATION: L4-5 decompression COMPARISON: None available. TECHNIQUE: Fluoroscopy time: 3.5 seconds DAP: 0.9 mGycm2 Images: 1 FINDINGS: Fluoroscopy provided in the operating room. Surgical instrument projected posteriorly at the L4-5 disc level. FL/FL guidance in OR IMPRESSION: Fluoroscopy provided in the operating room. See surgical report for details. Electronically signed by: Ned Pettit MD 08/28/2025 03:06 PM KATHERIN
[2025-08-28] MEDS: Lactated Ringers 1,000 ML 100 ML IVCONT (06:18)
[2025-08-28 06:21] LABS: UPreg QC Valid YES
--- NOTE | 2025-08-28 07:03 | MHC.SHP ---
Pre-Procedural Eval Section A - 24 Hr Update-Section A only Date of Service: 08/28/25 The patient is an INPATIENT: No Changes since office visit: No Cold of Flu in the past 2 weeks, No New Medical Problems, No Changes in Medication and No Patient answered all questions The patient has been examined within 24 hours of the surgical procedure. The History & Physical has been completed within 30 days and I have reviewed it.: No Section B - Complete if H&P > 30 days Chief Complaint: Other intervertebral disc displacement, lumbar Allergies: Allergies Allergy/AdvReac Type Severity Reaction Status Date / Time amoxicillin (AMOXICILLIN) Allergy Intermediate RASH Verified 08/22/25 08:47 Review of Systems Sugical H&P ROS: Negative: Constitution, Cardiovascular, Respiratory, Neurological, Psychiatric, Hem-Onc, Allergic/Immunologic, Gastrointestinal, Genitourinary, Musculoskeletal, Integumentary, Endocrine and Eyes/Ears/Nose/Throat Exam Surgical H&P Exam: Normal: HEENT, Normal: Heart, Normal: Lungs, Normal: Extremities, Normal: Abdomen, Normal: Skin and Normal: Neurological (awake, alert,oriented x 3 ) Plan Diagnosis/Plan: Unchanged right L4-5 microdiskectomy Time Spent With Patient Time: Total time managing care of this patient today _5___ minutes.
--- NOTE | 2025-08-28 08:34 | P.OP_ITS ---
Operative Note Operative Note Date of Service: 08/28/25 Narrative: Preoperative diagnosis: Right lumbar radiculopathy due to disc herniation Postoperative diagnosis: Same Procedure: Right L4-5 lumbar microdiskectomy with microscope Surgeon: Rigo Estrada MD, PhD Assistant Dean Of Students: shorty Navarro This patient is suffering from severe L5 radiculopathy due to a large extruded disc herniation compressing the right L5 nerve root. The patient was offered a lumbar microdiskectomy to decompress the nerve root. The procedure complications were explained. The patient was consented. The patient was brought to the operating room and endotracheally intubated. The patient was turned in a prone position on the Mendez frame. Prepping and draping was done followed by time-out. A mid lumbar incision was made followed by release of the paravertebral muscles on the right side to expose the L4-5 interspace. An intraoperative x-rays obtained to confirm the correct level. The microscope was brought in. A L4 laminotomy was done followed by opening of the flavum ligament. The L5 nerve root was identified and retracted medially to expose the L4-5 disc space and disc herniation. I could palpate a disc herniation medial from the L5 nerve root, which I carefully removed with a pituitary. A very large fragment was extracted medially from the L5 nerve root. The disc space was inspected and any residual disc fragments were removed. This resulted in an excellent decomp ression of the L5 nerve root. Hemostasis was done. The microscope was removed. Marcaine was injected intramuscularly.The incision was closed in two layers. Steri-Strips used to approximate the incision. An op-site were taken there was used to cover the incision. All sponge and needle counts were correct. Patient was extubated and transported in stable condition to recovery room. this procedure was done with the aid of a physician lpn medical assistant who performed the initial exposure until the microscope was brought in and performed the closure of the incision. Anesthesia: General Blood loss: 20 mL Complications: None Specimen: None Surgical time: 40 minutes Disposition: Discharge home
== END 2025-08-28 10:12 | disposition home or self-care (01) ==
LOC: HO.SSS 05:49
PROVIDERS: Nurse Practitioner; PCP Internal Medicine; Visit Provider Neurological Surgery
PROC: (CPT 63030; principal; 2025-08-28 07:30)
DX: M51.16 Intervertebral disc disorders with radiculopathy, lumbar region (principal); M54.50 Low back pain, unspecified; R26.2 Difficulty in walking, not elsewhere classified; Z91.81 History of falling; Z79.85 Long-term (current) use of injectable non-insulin antidiabetic drugs; Z88.1 Allergy status to other antibiotic agents; Z90.49 Acquired absence of other specified parts of digestive tract
CPT/HCPCS: 63030; 81025; J0131; J1100; J1171; J1885; J2003; J2250; J2405; J2550; J2704; J3010; J3374

== ENCOUNTER → 2025-08-28 05:48 | Outpatient (BNV) | payer OTHER, SELFPAY | PROVIDERS: PCP Internal Medicine; Visit Provider Neurological Surgery | DX: M51.26 Other intervertebral disc displacement, lumbar region (principal) | CPT/HCPCS: 63030; 99499 ==